=== PATIENT | male | born 1960 | race Caucasian/White ===

== ENCOUNTER 2017-05-19 23:33 | Emergency (ER) | payer OTHER, BC ==
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
[2017-05-20 00:33] VITALS: BP 134/99
== END 2017-05-20 00:15 ==
LOC: JD.ED 23:33
DX: S16.1XXA Strain of muscle, fascia and tendon at neck level, initial encounter (principal); E10.9 Type 1 diabetes mellitus without complications; Z91.018 Allergy to other foods; Z79.899 Other long term (current) drug therapy; V89.2XXA Person injured in unspecified motor-vehicle accident, traffic, initial encounter
CPT/HCPCS: 99284

== ENCOUNTER 2019-05-11 07:36 | Emergency (ER) | payer BC, OTHER ==
[2019-05-11 07:50] VITALS: BP 122/81; PULSE 84
[2019-05-11] MEDS ORDERED: Naproxen 500 MG Tab PO ONE (07:59)
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
--- NOTE | 2019-05-11 08:41 | CR ---
Right ankle: Four views of the right ankle were obtained. Comparison: No prior ankle study. Slightly displaced distal fibular fracture is seen. Soft tissue swelling is noted. Small plantar spur is noted. No additional fracture or other bony abnormality is seen. Impression: 1. Slightly displaced distal fibular fracture. 2. Other findings as noted above. Diagnostic code #3 This report was dictated in [place] Standard Time
== END 2019-05-11 09:04 | disposition home or self-care (01) ==
LOC: JD.ED 07:36
DX: S82.831A Other fracture of upper and lower end of right fibula, initial encounter for closed fracture (principal); E10.9 Type 1 diabetes mellitus without complications; Z91.018 Allergy to other foods; Z79.4 Long term (current) use of insulin; W00.0XXA Fall on same level due to ice and snow, initial encounter; Y93.01 Activity, walking, marching and hiking; Y92.89 Other specified places as the place of occurrence of the external cause
CPT/HCPCS: 73610; 99283; A9270

== ENCOUNTER 2019-12-15 17:06 | Emergency (ER) | payer BC ==
[2019-12-15] MEDS ORDERED: Sodium Chloride 0.9% 10 ML Syringe FLUSH PRN (17:23)
[2019-12-15] MEDS ORDERED: Diltiazem 50 MG/10 ML SDV IVPUSH ONE (17:24)
[2019-12-15] MEDS ORDERED: Sodium Chloride 0.9% 1,000 ML IV SCH (17:30)
[2019-12-15] MEDS ORDERED: Diltiazem 100 MG in Sodium Chloride 0.9% 100 ML IV SCH (17:30)
[2019-12-15 17:46] VITALS: BP 116/80; PULSE 88
--- NOTE | 2019-12-15 18:36 | EDM.PDOC ---
ED HPI GENERAL MEDICAL PROBLEM - General Chief Complaint: Cardiovascular Problem Stated Complaint: RAPID HEART RATE SENT BY DR GUADALUPE Time Seen by Provider: 12/15/19 17:19 Source of Information: Reports: Patient History Limitations: Reports: No Limitations - History of Present Illness INITIAL COMMENTS - FREE TEXT/NARRATIVE: The patient presents from Dr Guadalupe's office for a rapid heart rate. He had this happen before and the health information coder thought about doing an ablation. He noticed this started just before going to see Dr Guadalupe. He was sent over for management. He has no chest pain or shortness of breath but he can feel that his heart is racing. He has no fever, chills, cough, congestion, runny nose, abdominal pain, nausea or vomiting. He did say he drank a large diet Dr Selam on the way from [place] today and it had caffeine. Onset: Gradual Duration: Hour(s): Severity: Moderate Improves with: Reports: None Worsens with: Reports: None Associated Symptoms: Reports: No Other Symptoms - Related Data Allergies Allergy/AdvReac Type Severity Reaction Status Date / Time wheat Allergy Cannot Verified 12/15/19 17:19 Remember acetaminophen [From Tylenol] AdvReac Severe Other Verified 12/15/19 17:19 Home Meds: Home Meds Ascorbic Acid [Vitamin C] 1,000 mg PO DAILY 04/19/15 [History] Calcium Carbonate/Magnesium Ox [Oyster Shell Calcium-Magnes] 1 tab PO DAILY 04/19/15 [History] Cholecalciferol (Vitamin D3) [Vitamin D3] 2,000 unit PO DAILY 04/19/15 [History] Cortisol Wallpaper Embosser Helper 1 tab PO BEDTIME 04/19/15 [History] Diltiazem IR [Cardizem] 30 mg PO Q12HR 04/19/15 [History] Fish Oil/[place]-3 Fatty Acids [Fish Oil] 4 tab PO DAILY 04/19/15 [History] Insulin Glulisine [Apidra] 1 unit SQ ASDIRECTED 04/19/15 [History] Lactobacillus Acidophilus [Acidophilus] 1 each PO BID 04/19/15 [History] Multivitamin [Daily Multiple Vitamin] 1 tab PO DAILY 04/19/15 [History] Ubidecarenone [COQ-10] 30 mg PO DAILY 04/19/15 [History] Past Medical History HEENT History: Reports: Other (See Below) Other HEENT History: wears glasses, has hearing aids Cardiovascular History: Reports: Other (See Below) Other Cardiovascular History: svt and R Bundle Branch Block Respiratory History: Reports: Other (See Below) Other Respiratory History: wears cpap Gastrointestinal History: Reports: None Genitourinary History: Reports: UTI, Recurrent Musculoskeletal History: Reports: Other (See Below) Other Musculoskeletal History: R thumb trigger finger, bunion Neurological History: Reports: None Psychiatric History: Reports: None Endocrine/Metabolic History: Reports: Diabetes, Type I, Obesity/BMI 30+ Hematologic History: Reports: None Immunologic History: Reports: None Oncologic (Cancer) History: Reports: None Dermatologic History: Reports: Other (See Below) Other Dermatologic History: erysipelas - Infectious Disease History Infectious Disease History: Reports: None - Past Surgical History Male Surgical History: Reports: Vasectomy Social & Family History - Family History Family Medical History: Noncontributory - Tobacco Use Smoking Status *Q: Never Smoker - Caffeine Use Caffeine Use: Reports: Soda - Recreational Drug Use Recreational Drug Use: No ED ROS GENERAL - Review of Systems Review Of Systems: See Below Constitutional: Reports: No Symptoms HEENT: Reports: No Symptoms Respiratory: Reports: No Symptoms Cardiovascular: Reports: Palpitations. Denies: Chest Pain Endocrine: Reports: No Symptoms GI/Abdominal: Reports: No Symptoms : Reports: No Symptoms Musculoskeletal: Reports: No Symptoms Skin: Reports: No Symptoms ED EXAM, GENERAL - Physical Exam Exam: See Below Exam Limited By: No Limitations General Appearance: Alert, No Apparent Distress Ears: Normal External Exam Nose: Normal Inspection Head: Atraumatic, Normocephalic Neck: Normal Inspection Respiratory/Chest: No Respiratory Distress, Lungs Clear, Normal Breath Sounds Cardiovascular: Regular Rate, Rhythm, No Edema, No Murmur GI/Abdominal: Soft, Non-Tender, No Organomegaly, No Mass Back Exam: Normal Inspection Extremities: Normal Inspection Neurological: Alert, Oriented, No Motor/Sensory Deficits EKG INTERPRETATION EKG Date: 12/15/19 Time: 17:20 Rhythm: Other (Junctional tachycardia) Rate (Beats/Min): 154 [place]: Normal P-Wave: Absent QRS: RBBB ST-T: Normal QT: Normal Course - Vital Signs Last Recorded V/S: Last Vital Signs Temp 97.8 F 12/15/19 17:13 Pulse 88 12/15/19 17:45 Resp 16 12/15/19 17:45 BP 116/80 12/15/19 17:45 Pulse Ox 97 12/15/19 17:45 - Orders/Labs/Meds Orders: Active Orders 24 hr Category Date Time Status Cardiac Monitoring [RC] . DIRECTED Care 12/15/19 17:23 Active EKG 12 Lead [EKG Documentation Completion] [RC] STAT Care 12/15/19 17:17 Active Peripheral IV Care [RC] . DIRECTED Care 12/15/19 17:23 Active Diltiazem [Cardizem] 100 mg Med 12/15/19 17:30 Active Sodium Chloride 0.9% [Normal Saline] 100 ml IV TITRATE Sodium Chloride 0.9% [Normal Saline] 1,000 ml Med 12/15/19 17:30 Active IV .BOLUS Sodium Chloride 0.9% [Saline Flush] Med 12/15/19 17:23 Active 10 ml FLUSH ASDIRECTED PRN Peripheral IV Insertion Adult [OM.PC] Stat Oth 12/15/19 17:23 Ordered Medication Orders Sodium Chloride (Normal Saline) 1,000 mls @ 1,000 mls/hr IV .BOLUS KRANTHI Last Admin: 12/15/19 17:35 Dose: 1,000 mls/hr Documented by: CALIN Diltiazem HCl 100 mg/ Sodium (Chloride) 100 mls @ 10 mls/hr IV TITRATE KRANTHI; Protocol Last Admin: 12/15/19 17:39 Dose: 10 mg/hr, 10 mls/hr Documented by: CALIN Sodium Chloride (Saline Flush) 10 ml FLUSH ASDIRECTED PRN PRN Reason: Keep Vein Open Last Admin: 12/15/19 17:36 Dose: 10 ml Documented by: CALIN Labs: Laboratory Tests 12/15/19 12/15/19 Range/Units 17:15 17:15 WBC 10.46 H (4.23-9.07) K/mm3 RBC 5.91 (4.63-6.08) M/mm3 Hgb 17.2 (13.7-17.5) gm/dl Hct 51.2 H (40.1-51.0) % MCV 86.6 (79.0-92.2) fl MCH 29.1 (25.7-32.2) pg MCHC 33.6 (32.2-35.5) g/dl RDW Std Deviation 45.2 H (35.1-43.9) fL Plt Count 367 H (163-337) K/mm3 MPV 9.7 (9.4-12.3) fl Neut % (Auto) 62.2 (34.0-67.9) % Lymph % (Auto) 25.8 (21.8-53.1) % [place] % (Auto) 8.1 (5.3-12.2) % Eos % (Auto) 3.3 (0.8-7.0) Baso % (Auto) 0.5 (0.1-1.2) % Neut # (Auto) 6.50 H (1.78-5.38) K/mm3 Lymph # (Auto) 2.70 (1.32-3.57) K/mm3 [place] # (Auto) 0.85 H (0.30-0.82) K/mm3 Eos # (Auto) 0.35 (0.04-0.54) K/mm3 Baso # (Auto) 0.05 (0.01-0.08) K/mm3 Manual Slide Review Normal smear Sodium 139 (136-145) mEq/L Potassium 4.3 (3.5-5.1) mEq/L Chloride 101 (98-107) mEq/L Carbon Dioxide 31 (21-32) mEq/L Anion Gap 11.3 (5-15) BUN 17 (7-18) mg/dL Creatinine 1.2 (0.7-1.3) mg/dL Est Cr Clr Drug Dosing 81.38 mL/min Estimated GFR (MDRD) > 60 (>60) mL/min BUN/Creatinine Ratio 14.2 (14-18) Glucose 317 H (74-106) mg/dL Calcium 9.1 (8.5-10.1) mg/dL Magnesium 1.9 (1.8-2.4) mg/dl Total Bilirubin 0.3 (0.2-1.0) mg/dL AST 18 (15-37) U/L ALT 31 (16-63) U/L Alkaline Phosphatase 98 (46-116) U/L Troponin I < 0.017 (0.00-0.056) ng/mL Total Protein 7.9 (6.4-8.2) g/dl Albumin 3.8 (3.4-5.0) g/dl Globulin 4.1 gm/dL Albumin/Globulin Ratio 0.9 L (1-2) Meds: Medications Generic Name Dose Route Start Last Admin Trade Name Freq PRN Reason Stop Dose Admin Sodium Chloride 1,000 mls @ 1,000 mls/hr 12/15/19 17:30 12/15/19 17:35 Normal Saline IV 1,000 mls/hr .BOLUS KRANTHI Administration Diltiazem HCl 100 mg/ Sodium 100 mls @ 10 mls/hr 12/15/19 17:30 12/15/19 17:39 Chloride IV 10 mg/hr TITRATE KRANTHI 10 mls/hr Administration Protocol 10 MG/HR Sodium Chloride 10 ml 12/15/19 17:23 12/15/19 17:36 Saline Flush FLUSH 10 ml ASDIRECTED PRN Administration Keep Vein Open Discontinued Medications Generic Name Dose Route Start Last Admin Trade Name Freq PRN Reason Stop Dose Admin Diltiazem HCl 10 mg 12/15/19 17:24 12/15/19 17:36 Cardizem IVPUSH 12/15/19 17:25 10 mg ONETIME ONE Administration - Re-Assessments/Exams Free Text/Narrative Re-Assessment/Exam: 12/15/19 18:34 I ordered an IV NS 1L bolus, EKG, labs, cardizem bolus and drip. His EKG shows a junctional tachycardia. His WBC was slightly elevated at 10.46. His glucose is 317. He is insulin dependent diabetic. His troponin is negative. He slowed down and is in a NSR now. He feels good and would like to go. Departure - Departure Time of Disposition: 18:35 Disposition: Home, Self-Care 01 Condition: Good Clinical Impression: Junctional tachycardia Referrals: Woody Guadalupe MD [Primary Care Provider] - 1 Week Additional Instructions: Take your medication as prescribed. Try to avoid any caffeine. Please return if you are worse. Sepsis Event Note (ED) - Evaluation Sepsis Screening Result: No Definite Risk - Focused Exam Vital Signs: Vital Signs Temp Pulse Resp BP Pulse Ox 12/15/19 17:45 88 16 116/80 97 12/15/19 17:13 97.8 F 157 H 18 135/96 H 97 - My Orders Last 24 Hours: My Active Orders 12/15/19 17:17 EKG 12 Lead [EKG Documentation Completion] [RC] STAT 12/15/19 17:23 Cardiac Monitoring [RC] . DIRECTED Peripheral IV Care [RC] . DIRECTED Sodium Chloride 0.9% [Saline Flush] 10 ml FLUSH ASDIRECTED PRN Peripheral IV Insertion Adult [OM.PC] Stat 12/15/19 17:30 Diltiazem [Cardizem] 100 mg Sodium Chloride 0.9% [Normal Saline] 100 ml IV TITRATE Sodium Chloride 0.9% [Normal Saline] 1,000 ml IV .BOLUS - Assessment/Plan Last 24 Hours: My Active Orders 12/15/19 17:17 EKG 12 Lead [EKG Documentation Completion] [RC] STAT 12/15/19 17:23 Cardiac Monitoring [RC] . DIRECTED Peripheral IV Care [RC] . DIRECTED Sodium Chloride 0.9% [Saline Flush] 10 ml FLUSH ASDIRECTED PRN Peripheral IV Insertion Adult [OM.PC] Stat 12/15/19 17:30 Diltiazem [Cardizem] 100 mg Sodium Chloride 0.9% [Normal Saline] 100 ml IV TITRATE Sodium Chloride 0.9% [Normal Saline] 1,000 ml IV .BOLUS
== END 2019-12-15 18:52 | disposition home or self-care (01) ==
LOC: JD.ED 17:06
DX: I47.1 Supraventricular tachycardia (principal); E10.9 Type 1 diabetes mellitus without complications; E66.9 Obesity, unspecified; Z91.018 Allergy to other foods; Z68.31 Body mass index [BMI] 31.0-31.9, adult; Z88.6 Allergy status to analgesic agent; Z79.899 Other long term (current) drug therapy
CPT/HCPCS: 36415; 80053; 83735; 84484; 85025; 93005; 96365; 99285; J3490; J7030; J7050; 93010; 99284

== ENCOUNTER 2020-02-20 07:58 | Day surgery (SDC) | payer BC ==
[~2020-02-20 07:58] MED LIST: Lactated Ringers 1,000 ML IV SCH; Lidocaine 1%/Sod Bicarbonate in NS 8.4% 1 ML Syringe IDERM PRN; Sodium Chloride 0.9% 10 ML Syringe FLUSH PRN
--- NOTE | 2020-02-20 08:09 | PCM.PREANE ---
Preanesthetic Assessment - Anesthesia/Transfusion/Family Hx Anesthesia History: Prior Anesthesia Without Reaction Family History of Anesthesia Reaction: No Transfusion History: No Prior Transfusion(s) - Review of Systems General: No Symptoms Pulmonary: No Symptoms Cardiovascular: No Symptoms Gastrointestinal: No Symptoms Neurological: No Symptoms Other: Reports: None - Physical Assessment NPO Status Date: 02/19/20 NPO Status Time: 23:50 ASA Class: 2 Mental Status: Alert & Oriented x3 Airway Class: Mallampati = 2 Dentition: Reports: Normal Dentition Thyro-Mental Finger Breadths: 3 Mouth Opening Finger Breadths: 3 ROM/Head Extension: Full Lungs: Clear to Auscultation, Normal Respiratory Effort Cardiovascular: Regular Rate, Regular Rhythm - Lab Values: Laboratory Last Values SARS-CoV-2 (PCR) Detected (NOT DETECT) H 01/05/20 10:00 - Allergies Allergies/Adverse Reactions: Allergies Allergy/AdvReac Type Severity Reaction Status Date / Time acetaminophen [From Tylenol] AdvReac Severe Other Verified 02/16/20 19:10 - Acknowledgements Anesthesia Type Planned: MAC Pt an Appropriate Candidate for the Planned Anesthesia: Yes Alternatives and Risks of Anesthesia Discussed w Pt/Guardian: Yes Pt/Guardian Understands and Agrees with Anesthesia Plan: Yes PreAnesthesia Questionnaire HEENT History: Reports: Other (See Below) Other HEENT History: wears glasses, has hearing aids Cardiovascular History: Reports: Other (See Below) Other Cardiovascular History: svt and R Bundle Branch Block Respiratory History: Reports: Sleep Apnea, Other (See Below) Other Respiratory History: wears cpap Gastrointestinal History: Reports: GERD Genitourinary History: Reports: None, UTI, Recurrent 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 History: Reports: None Musculoskeletal History: Reports: Other (See Below) Other Musculoskeletal History: R thumb trigger finger, bunion Neurological History: Reports: None Psychiatric History: Reports: None Endocrine/Metabolic History: Reports: Diabetes, Type I, Obesity/BMI 30+ Hematologic History: Reports: None Immunologic History: Reports: None Oncologic (Cancer) History: Reports: None Dermatologic History: Reports: Other (See Below) Other Dermatologic History: erysipelas - Infectious Disease History Infectious Disease History: Reports: None - Past Surgical History Head Surgeries/Procedures: Reports: None HEENT Surgical History: Reports: None Cardiovascular Surgical History: Reports: None Respiratory Surgical History: Reports: None GI Surgical History: Reports: Colonoscopy Male Surgical History: Reports: Vasectomy Endocrine Surgical History: Reports: None Neurological Surgical History: Reports: None Musculoskeletal Surgical History: Reports: Other (See Below) Other Musculoskeletal Surgeries/Procedures:: right trigger finger release Oncologic Surgical History: Reports: None - SUBSTANCE USE Tobacco Use Status *Q: Never Tobacco User Recreational Drug Use History: No - HOME MEDS Home Medications: Home Meds Ascorbate Calcium [Vitamin C] 500 mg PO DAILY 02/16/20 [History] Calcium Carb/Vitamin D3/Vit K1 [Calcium + D Soft Chewable Tab] 1 tab PO DAILY 02/16/20 [History] Cholecalciferol (Vitamin D3) [Vitamin D3] 1,000 unit PO DAILY 02/16/20 [History] Fish Oil/[place]-3 Fatty Acids [Fish Oil 1,000 MG] 5 gm PO DAILY 02/16/20 [History] Insulin Aspart (Niacinamide) [Fiasp 100 Unit/ml Vial] 1 dose SQ ASDIRECTED 02/16/20 [History] Magnesium Oxide 500 mg PO DAILY 02/16/20 [History] Omeprazole Magnesium [Prilosec Otc] 20 mg PO QAM 02/16/20 [History] Promethazine [Phenergan] 1 dose TOP ASDIRECTED PRN 02/16/20 [History] Vitamin B Complex 1 cap PO DAILY 02/16/20 [History] dilTIAZem HCL [Cardizem] 120 mg PO DAILY 02/16/20 [History] lisinopriL [Lisinopril] 2.5 mg PO DAILY 02/16/20 [History] - CURRENT (IN HOUSE) MEDS Current Meds: Current Medications Lactated Ringer's (Ringers, Lactated) 1,000 mls @ 125 mls/hr IV ASDIRECTED KRANTHI Stop: 02/20/20 23:00 Lidocaine/Sodium Bicarbonate (Buffered Lidocaine 1% In Ns 8.4%) 0.25 ml IDERM ONETIME PRN PRN Reason: Prior to IV Start Stop: 02/20/20 18:00 Sodium Chloride (Saline Flush) 10 ml FLUSH ASDIRECTED PRN PRN Reason: Keep Vein Open Stop: 02/20/20 18:00 Discontinued Medications Lactated Ringer's (Ringers, Lactated) 1,000 mls @ 125 mls/hr IV ASDIRECTED KRANTHI Stop: 01/09/20 23:00 Lidocaine/Sodium Bicarbonate (Buffered Lidocaine 1% In Ns 8.4%) 0.25 ml IDERM ONETIME PRN PRN Reason: Prior to IV Start Stop: 01/09/20 23:00 Sodium Chloride (Saline Flush) 10 ml FLUSH ASDIRECTED PRN PRN Reason: Keep Vein Open Stop: 01/10/20 23:00
[2020-02-20] MEDS ORDERED: Propofol 200 MG/20 ML SDV ONE (08:57)
[2020-02-20] MEDS ORDERED: Lidocaine 1% 4 ML ONE (09:02)
[2020-02-20] MEDS ORDERED: fentaNYL 100 MCG/2 ML SDV ONE (09:02)
--- NOTE | 2020-02-20 09:56 | PCM48HPAN ---
Post Anesthesia Note - EVALUATION WITHIN 48HRS OF ANESTHETIC Vital Signs in Normal Range: Yes Patient Participated in Evaluation: Yes Respiratory Function Stable: Yes Airway Patent: Yes Cardiovascular Function Stable: Yes Hydration Status Stable: Yes Pain Control Satisfactory: Yes Nausea and Vomiting Control Satisfactory: Yes Mental Status Recovered: Yes Vital Signs: Last Vital Signs Temp 36.4 C 02/20/20 08:00 Pulse 67 02/20/20 08:00 Resp 20 02/20/20 08:00 BP 129/83 02/20/20 08:00 Pulse Ox 99 02/20/20 08:00
[2020-02-20 10:33] VITALS: BP 103/68; PULSE 64
--- NOTE | 2020-02-20 13:14 | PROC ---
DATE OF OPERATION: 02/20/2020 SURGEON: García Abdalla MD PREOPERATIVE DIAGNOSIS: Dysphagia. POSTOPERATIVE DIAGNOSIS: 1. Bile reflux 2. Esophagitis 3. Gastritis 4. Large sliding hiatal hernia PROCEDURE: Esophagogastroduodenoscopy. ESTIMATED BLOOD LOSS: Minimal. ANESTHESIA: Monitored anesthesia care. COMPLICATIONS: None. INDICATIONS AND CONSENT: Mr. Castro is a 59-year-old male who presented to clinic for dysphagia symptoms. The patient reported that as of last few months he has been having trouble swallowing some types of food. Sometimes it could be solids, sometimes could be liquid, sometimes even water, feels like the food is getting stuck into the lower chest. The patient also had been complaining about reflux that has intensified. He was placed on PPI, which appeared to help. The patient underwent an upper GI that showed a large hiatal hernia and reflux, but no other significant abnormalities. Due to these findings, I recommended we proceed with an EGD and the risks, benefits, and alternatives were discussed and the patient agreed to proceed with the procedure. Informed consent was obtained. DETAILS OF PROCEDURE: The patient was met in the preop area and was doing fine, was taken to the procedure room and placed in left lateral decubitus position. A time-out was performed. Bite block was placed. The patient was appropriately padded and monitored anesthesia care was induced. Then, we began the procedure by passing the scope down into the mouth and into the esophagus with direct visualization. The upper esophagus appeared normal. There was mild tortuosity of the esophagus. In the distal esophagus right above the GE junction, there was some angulation at this area. Then, we entered the GE junction immediately discovering a large hiatal hernia with part of the stomach in the chest. We traversed this area and went down to the second portion of duodenum. Duodenum was normal, both first and second portions. We went back into the antrum. There was a significant bile stain in the antrum with associated localized inflammatory response. We biopsied areas of inflammation as well as the antrum for histologic examination and H. pylori testing. Then, we went on retroflexion. There was large hiatal hernia with part of the stomach in the chest. This appeared to be more consistent with a sliding hiatal hernia. There was small amount of green stained fluid in the fundus and cardia once again indicating bile reflux. We biopsied the fundus as well as some areas that appeared to be inflamed. We went back to the GE junction and distal esophagus. There appeared to be some grade B esophagitis in the distal esophagus. This area was biopsied for histological examination. Once again, there was acute angulation in the distal esophagus as you entered the GE junction, likely due to the hiatal hernia. I think this area may be causing the patient's symptoms. Once this was done, once again we traversed into the stomach. There was no obvious stricture that needed to be intervened on. At this point, air was suctioned out and scope was withdrawn. Therefore, in this case, we found bile reflux, gastritis, and esophagitis as well as large hiatal hernia, which is sliding hiatal hernia. The patient was awoken from monitored anesthesia care and taken to the PACU for recovery. The patient to be allowed to go home and follow up with me in 1 week for further discussion. ROSE MARY /[id number] CASH
== END 2020-02-20 10:36 | disposition home or self-care (01) ==
LOC: JD.SDS 07:58
PROVIDERS: ATTEND Surgery
DX: K29.50 Unspecified chronic gastritis without bleeding (principal); K31.89 Other diseases of stomach and duodenum; K21.00 Gastro-esophageal reflux disease with esophagitis, without bleeding; K44.9 Diaphragmatic hernia without obstruction or gangrene; I78.1 Nevus, non-neoplastic; G47.30 Sleep apnea, unspecified; E66.9 Obesity, unspecified; E10.9 Type 1 diabetes mellitus without complications; Z68.31 Body mass index [BMI] 31.0-31.9, adult; Z98.890 Other specified postprocedural states; Z79.899 Other long term (current) drug therapy; Z88.8 Allergy status to other drugs, medicaments and biological substances; Z01.812 Encounter for preprocedural laboratory examination; Z20.828 Contact with and (suspected) exposure to other viral communicable diseases
CPT/HCPCS: 43239; 87635; J2001; J2704; J3010; J7120; 00731; U0002

== ENCOUNTER 2020-06-18 07:10 | Inpatient (IN) | payer BC ==
[2020-06-18] MEDS ORDERED: Lidocaine 1% 4 ML ONE (07:28)
[2020-06-18] MEDS ORDERED: Propofol 200 MG/20 ML SDV ONE ×2 (07:28→08:23)
[2020-06-18] MEDS ORDERED: Rocuronium 50 MG/5 ML Vial ONE ×4 (07:30→12:10)
[2020-06-18] MEDS ORDERED: Midazolam 1 MG/ML 2 ML SDV ONE (07:30)
[2020-06-18] MEDS ORDERED: Ondansetron 4 MG/2 ML SDV ONE ×2 (07:31→12:41)
[2020-06-18] MEDS ORDERED: Dexamethasone 4 MG/ML 5 ML MDV ONE (07:31)
[2020-06-18] MEDS ORDERED: fentaNYL 100 MCG/2 ML SDV ONE ×3 (07:31→16:33)
[2020-06-18] MEDS ORDERED: Bupivacaine 0.5%/EPINEPHrine 1:200,000 50 ML MDV ONE ×2 (07:32→09:12)
[2020-06-18] MEDS ORDERED: ceFAZolin 1 GM Vial ONE ×2 (07:32→12:09)
--- NOTE | 2020-06-18 07:50 | PCM.PREANE ---
Preanesthetic Assessment - Procedure Proposed Procedure: lap hiatal hernia repair - Anesthesia/Transfusion/Family Hx Anesthesia History: Prior Anesthesia Without Reaction Transfusion History: No Prior Transfusion(s) Intubation History: Unknown - Review of Systems General: No Symptoms Pulmonary: Other (quoc with CPAP mask ) Cardiovascular: No Symptoms (since ablation no symptoms ) Gastrointestinal: No Symptoms Neurological: No Symptoms Other: Reports: Diabetes - Physical Assessment NPO Status Date: 06/17/20 NPO Status Time: 22:00 Height: 1.93 m ASA Class: 3 Mental Status: Alert & Oriented x3 Airway Class: Mallampati = 2 Dentition: Reports: Missing Tooth/Teeth (multiple in the back and right lower ) Thyro-Mental Finger Breadths: 3 Mouth Opening Finger Breadths: 4 ROM/Head Extension: Full Lungs: Clear to Auscultation, Normal Respiratory Effort Cardiovascular: Regular Rate, Regular Rhythm - Allergies Allergies/Adverse Reactions: Allergies Allergy/AdvReac Type Severity Reaction Status Date / Time acetaminophen [From Tylenol] AdvReac Intermediate Other Verified 06/15/20 12:02 - Blood Blood Available: No - Anesthesia Plan Pre-Op Medication Ordered: None - Acknowledgements Anesthesia Type Planned: General Anesthesia Pt an Appropriate Candidate for the Planned Anesthesia: Yes Alternatives and Risks of Anesthesia Discussed w Pt/Guardian: Yes Pt/Guardian Understands and Agrees with Anesthesia Plan: Yes PreAnesthesia Questionnaire HEENT History: Reports: Other (See Below) Other HEENT History: wears glasses, has hearing aids Cardiovascular History: Reports: Other (See Below) Other Cardiovascular History: svt and R Bundle Branch Block Respiratory History: Reports: Sleep Apnea, Other (See Below) Other Respiratory History: wears cpap Gastrointestinal History: Reports: GERD Genitourinary History: Reports: None, UTI, Recurrent DIRECTOR OF STUDENT LIFE History: Reports: None Musculoskeletal History: Reports: Other (See Below) Other Musculoskeletal History: R thumb trigger finger, bunion Neurological History: Reports: None Psychiatric History: Reports: None Endocrine/Metabolic History: Reports: Diabetes, Type I, Obesity/BMI 30+ Hematologic History: Reports: None Immunologic History: Reports: None Oncologic (Cancer) History: Reports: None Dermatologic History: Reports: Other (See Below) Other Dermatologic History: erysipelas - Infectious Disease History Infectious Disease History: Reports: Novel Coronavirus - Past Surgical History Head Surgeries/Procedures: Reports: None HEENT Surgical History: Reports: None Cardiovascular Surgical History: Reports: Cardiac Ablation Respiratory Surgical History: Reports: None GI Surgical History: Reports: Colonoscopy, EGD Male Surgical History: Reports: Vasectomy Endocrine Surgical History: Reports: None Neurological Surgical History: Reports: None Musculoskeletal Surgical History: Reports: Other (See Below) Other Musculoskeletal Surgeries/Procedures:: right trigger finger release Oncologic Surgical History: Reports: None - SUBSTANCE USE Tobacco Use Status *Q: Never Tobacco User Second Hand Smoke Exposure: No Recreational Drug Use History: No - HOME MEDS Home Medications: Home Meds Ascorbate Calcium [Vitamin C] 500 mg PO DAILY 02/16/20 [History] Calcium Carb/Vitamin D3/Vit K1 [Calcium + D Soft Chewable Tab] 1 tab PO BID 02/16/20 [History] Cholecalciferol (Vitamin D3) [Vitamin D3] 1,000 unit PO DAILY 02/16/20 [History] Fish Oil/[place]-3 Fatty Acids [Fish Oil 1,000 MG] 4 - 5 gm PO DAILY 02/16/20 [History] Insulin Aspart (Niacinamide) [Fiasp 100 Unit/ml Vial] 1 dose SQ ASDIRECTED 02/16/20 [History] Magnesium Oxide 500 mg PO DAILY 02/16/20 [History] Omeprazole Magnesium [Prilosec Otc] 20 mg PO QAM 02/16/20 [History] Promethazine [Phenergan] 1 dose TOP ASDIRECTED PRN 02/16/20 [History] Vitamin B Complex 1 cap PO DAILY 02/16/20 [History] lisinopriL [Lisinopril] 2.5 mg PO DAILY 02/16/20 [History] Rosuvastatin [Crestor] 5 mg PO DAILY 06/15/20 [History] Ubidecarenone [Coq-10] 100 mg PO DAILY 06/15/20 [History] Zinc 50 mg PO DAILY 06/15/20 [History] - CURRENT (IN HOUSE) MEDS Current Meds: Current Medications Lactated Ringer's (Ringers, Lactated) 1,000 mls @ 125 mls/hr IV ASDIRECTED KRANTHI Stop: 06/18/20 23:00 Lidocaine/Sodium Bicarbonate (Lidocaine 1%/Sod Bicarbonate In Ns 8.4% 1 Ml Syringe) 0.25 ml IDERM ONETIME PRN PRN Reason: Prior to IV Start Stop: 06/18/20 18:00 Sodium Chloride (Sodium Chloride 0.9% 10 Ml Syringe) 10 ml FLUSH ASDIRECTED PRN PRN Reason: Keep Vein Open Stop: 06/18/20 18:00 Discontinued Medications Bupivacaine HCl/Epinephrine Bitart (Bupivacaine 0.5%/Epinephrine 1:200,000 50 Ml Mdv) Confirm Administered Dose 50 ml .ROUTE .STK-MED ONE Stop: 06/18/20 07:33 Cefazolin Sodium (Cefazolin 1 Gm Vial) Confirm Administered Dose 3 gm .ROUTE .STK-MED ONE Stop: 06/18/20 07:33 Dexamethasone (Dexamethasone 4 Mg/Ml 5 Ml Mdv) Confirm Administered Dose 20 mg .ROUTE .STK-MED ONE Stop: 06/18/20 07:32 Fentanyl (Fentanyl 100 Mcg/2 Ml Sdv) Confirm Administered Dose 100 mcg .ROUTE .STK-MED ONE Stop: 06/18/20 07:32 Lidocaine HCl (Xylocaine-Mpf 1%) Confirm Administered Dose 4 mls @ as directed .ROUTE .STK-MED ONE Stop: 06/18/20 07:29 Midazolam HCl (Midazolam 1 Mg/Ml 2 Ml Sdv) Confirm Administered Dose 2 mg .ROUTE .STK-MED ONE Stop: 06/18/20 07:31 Ondansetron HCl (Ondansetron 4 Mg/2 Ml Sdv) Confirm Administered Dose 4 mg .ROUTE .STK-MED ONE Stop: 06/18/20 07:32 Propofol (Propofol 200 Mg/20 Ml Sdv) Confirm Administered Dose 200 mg .ROUTE .STK-MED ONE Stop: 06/18/20 07:29 Rocuronium [place] (Rocuronium 50 Mg/5 Ml Vial) Confirm Administered Dose 50 mg .ROUTE .STK-MED ONE Stop: 06/18/20 07:31
[2020-06-18] MEDS ORDERED: Lactated Ringers 1,000 ML ONE ×2 (08:48→14:33)
[2020-06-18] MEDS ORDERED: HYDROmorphone 0.5 MG/0.5 ML Syringe ONE ×6 (08:49→14:47)
[2020-06-18] MEDS ORDERED: Ketamine 500 mg/10 ML MDV ONE (08:54)
[2020-06-18] MEDS ORDERED: Ketorolac 30 MG/ML SDV ONE (09:03)
[2020-06-18] MEDS ORDERED: Lactated Ringers 2,000 ML ONE (12:00)
[2020-06-18] MEDS ORDERED: Ondansetron 4 MG/2 ML SDV IVPUSH PRN (12:39)
[2020-06-18] MEDS ORDERED: diphenhydrAMINE 50 MG/ML SDV IVPUSH PRN (12:39)
[2020-06-18] MEDS ORDERED: Scopolamine 1.5 MG Transdermal Patch TRDERM ONE (13:00)
[2020-06-18] MEDS ORDERED: Sodium Chloride 0.9% 100 ML ONE (13:16)
[2020-06-18] MEDS: Insulin Regular, Human 100 Units/ML 3 ML Vial IV PRN ×4 (13:22→15:09)
[2020-06-18] MEDS ORDERED: fentaNYL 100 MCG/2 ML SDV IVPUSH PRN (16:54)
--- NOTE | 2020-06-18 16:59 | PCM.POSTAN ---
POST ANESTHESIA ASSESSMENT - MENTAL STATUS Mental Status: Somnolent - VITAL SIGNS Vital Signs: Last Vital Signs Temp 36.6 C 06/18/20 07:15 Pulse 79 06/18/20 07:15 Resp 20 06/18/20 07:15 BP 131/76 06/18/20 07:15 Pulse Ox 98 06/18/20 07:15 - RESPIRATORY Respiratory Status: Respiratory Rate WNL, Airway Patent, O2 Saturation Stable, Supplemental Oxygen - CARDIOVASCULAR CV Status: Pulse Rate WNL, Blood Pressure Stable - GASTROINTESTINAL GI Status: No Symptoms - PAIN Pain Score: 0 - POST OP HYDRATION Hydration Status: Adequate & Stable - OBSERVATIONS Free Text/Narrative:: no anesthesia complications noted
[2020-06-18] MEDS ORDERED: Polyethylene Glycol 3350 Powder 17 GM Packet PO PRN (17:09)
--- NOTE | 2020-06-18 18:08 | OR ---
DATE OF OPERATION: 06/18/2020 SURGEON: García Abdalla MD PREOPERATIVE DIAGNOSIS: 1. Moderate to large hiatal hernia, type 3. 2. Chronic gastroesophageal reflux disease. POSTOPERATIVE DIAGNOSIS: 1. Moderate to large hiatal hernia. 2. Chronic gastroesophageal reflux disease. 3. Shortened esophagus OPERATION PERFORMED: 1. Laparoscopic paraesophageal hiatal hernia repair. 2. Partial gastric fundoplication - [place] 3. El gastroplasty. 4. Intraoperative esophagogastroscopy. ANESTHESIA: General endotracheal plus local anesthetic consisting of 1% lidocaine with epinephrine. COMPLICATIONS: None. ESTIMATED BLOOD LOSS: 50 mL. NEED FOR ASSISTANCE: Skilled assistance of Edna Montenegro CNP was needed in this case. She assisted with patient positioning, holding retractors during the procedure and incision closure. INDICATIONS AND CONSENT: Mr. Nithin Castro is a 59-year-old male, who has been suffering from chronic dysphagia and GERD. The patient has been using PPIs which are helping, but the patient does not want to continue to take PPIs. The patient was evaluated with an EGD, esophagram, motility studies, and pH manometry. EGD showed moderately large paraesophageal hiatal hernia, this was type 3, and esophagitis. X-ray and esophagram did show the same. Manometry showed esophageal dysmotility disorder and manometry showed significant reflux. Due to these findings, the patient was offered partial fundoplication with hiatal hernia repair. We discussed risks, benefits, and alternatives including bloating, injury to the esophagus, leak, injury to other adjacent structures, and informed consent was obtained. DESCRIPTION OF PROCEDURE: The patient was taken to the operating room, placed in supine position. Preop antibiotics were given. General anesthesia was induced. The patient's position was changed to lithotomy. Serrano was placed and the abdomen is was prepped and draped in the usual sterile fashion. Formal time-out was performed prior to the start of the procedure. We began by injecting local anesthetic in the left upper quadrant. Stab incision was made and a Veress needle was inserted. Abdomen was insufflated to 15 mmHg. Then, a 12 mm trocar was placed in the supraumbilical position just to the left to the umbilicus and cranially, and upon inspection, the abdomen revealed no injuries. Another 12 mm trocar was placed about 12 mm from xiphoid on the left upper quadrant. Another 5 mm trocar was placed in the right subcostal and a liver retractor was placed into the subxiphoid area to retract the liver using a retractor clamp. Then, advertising assistant port was placed in the left lateral abdomen. The patient was placed in the reverse Trendelenburg and we began by exploring the abdomen, which was normal. The hiatal area did show a paraesophageal hiatal hernia containing about a third of the stomach. This was reduced and we started by dissecting the hernia sac of the surrounding structures and scar tissue. This was done by first dissecting the parietal peritoneum around the crura with Bovie. Using blunt dissection, the hernia sac was carefully from the thoracic structures. This was done on the right side, then anteriorly and then on the left side. Then, the short gastrics were divided with LigaSure Impact. Next, the left mary was dissected further to delineate its full course. The right mary was also similarly dissected completely. Then, the Becky drain was placed around the esophagus and retraction caudally was maintained. A posterior dissection was now completed, taking care to ligate the vessels coming from the aorta to the posterior esophagus. Dissection was taken as high up to the mediastinum as possible. Care was taken to visualize and protect the vagus nerves. Once this was done, we went back into the abdomen. The hernia sac was partially resected from the GE junction and at this point, we started to assess the intraabdominal length of the esophagus. Tension was released from the becky and the esophagus was measured with ruler placed intra-abdominally. There was only 1.5 cm of intraabdominal esophagus. Because of this inadequacy, we repeated dissection further into the mediastinum trying to release further the length of the esophagus, but even with further dissection, the esophageal length was inadequate. Therefore, a decision was made to proceed with El gastroplasty. To do this, a portion of the fundus of the stomach was identified. A 56-Cuban bougie was placed into the esophagus all the way into the mid stomach and then a wedge of the fundus was taken using blue load with the Endo-JESUS stapler. Once this was done, we had additional 2 cm length of the leonor esophagus. This was adequate to perform our fundoplication. We proceeded with closure of the hiatal hernia. Three [id number] stitches using 0 Ethibond stitches and Endo Stitch devices were used to close the hiatus. Once this was done, one additional stitch was placed anteriorly to further reduce the hiatus and prevent recurrence. Once this was done, we tried to perform the partial fundoplication, but we had some difficulty passing the fundus around the leonor esophagus. Because of this, we reinspected our fundus and found that there were some posterior attachments that had not been taken. Therefore, we went back to dissection and using LigaSure Impact, we took posterior attachments to the fundus; therefore, completely releasing the fundus, and once this was done, we were able to pass the transection line of the fundus towards the right and part of the greater curve towards the left, performing a partial fundoplication. This partial fundoplication was a Toupet fundoplication about 270 degrees. This was performed under a 56-Cuban bougie using 0 Ethibond stitches and Endo Stitch device. Once this was done, any blood was suctioned out and we proceeded with intraoperative EGD. Scope was placed into the mouth and taken down to the stomach. Stomach appeared normal. On retroflexion, we visualized the newly formed fundoplication appeared to be well positioned. The fundoplication was as expected below the GE junction. The GE junction was residing at the hiatus. Once this was done, the air was suctioned out and went back into the abdomen. I inspected the abdomen. We removed the parts of the hernia sac through the EndoCatch bag and everything appeared to be in good condition. Liver retractor was removed and we proceeded with closure of the 12 mm trocar sites with 0 Vicryl stitches using David-Marianne device and incision at all 6 areas was closed with 4-0 Monocryl at skin level. This marked the end of the procedure. At the end of the procedure, all instruments, sharps, and sponges were counted and found to be correct x2. The patient was awakened, extubated, and taken to the PACU for recovery. ROSE MARY /[id number] CASH
[2020-06-18] MEDS: Lactated Ringers 1,000 ML IV SCH (19:52)
[2020-06-18] MEDS: Ondansetron 4 MG/2 ML SDV IVPUSH SCH (19:52)
[2020-06-19] MEDS: Ondansetron 4 MG/2 ML SDV IVPUSH SCH ×5 (00:01→23:07)
[2020-06-19] MEDS: HYDROmorphone 0.5 MG/0.5 ML Syringe IVPUSH PRN ×6 (00:01→19:41)
[2020-06-19] MEDS: Lactated Ringers 1,000 ML IV SCH (03:49)
--- NOTE | 2020-06-19 07:58 | PCM48HPAN ---
Post Anesthesia Note - EVALUATION WITHIN 48HRS OF ANESTHETIC Vital Signs in Normal Range: Yes Patient Participated in Evaluation: Yes Respiratory Function Stable: Yes Airway Patent: Yes Cardiovascular Function Stable: Yes Hydration Status Stable: Yes Pain Control Satisfactory: Yes Nausea and Vomiting Control Satisfactory: Yes Mental Status Recovered: Yes Vital Signs: Last Vital Signs Temp 37.2 C 06/19/20 03:47 Pulse 100 06/19/20 03:47 Resp 18 06/19/20 03:47 BP 117/67 06/19/20 03:47 Pulse Ox 96 06/19/20 03:47 - COMMENTS/OBSERVATIONS Free Text/Narrative:: Nithin is sitting up in bed conversing with his and nursing staff this morning. He states his pain has significantly improved over night and the goal is to get him up out of bed today. He admits he has not used his incentive spirometer. Education provided enforcing the importance of pulmonary exercise. All questions answered at this time. No anesthetic complications noted.
[2020-06-19] MEDS: Pantoprazole 40 MG Vial IVPUSH SCH (08:28)
[2020-06-19] MEDS: oxyCODONE 5 MG Tab PO PRN ×3 (08:36→14:31)
--- NOTE | 2020-06-19 09:48 | PCM.PN ---
- General Info Date of Service: 06/19/20 Subjective Update: Still has a sharp abdominal pain on the left lateral incision. This is what prevents him from doing activities. He is tolerating clears without nausea or vomiting Functional Status: Reports: Tolerating Diet, Other (No nausea or vomiting) - Review of Systems General: Reports: No Symptoms HEENT: Reports: No Symptoms Pulmonary: Reports: No Symptoms Cardiovascular: Reports: No Symptoms Gastrointestinal: Reports: Abdominal Pain (post op) - Patient Data Vitals - Most Recent: Last Vital Signs Temp 99.0 F 06/19/20 07:56 Pulse 91 06/19/20 07:56 Resp 16 06/19/20 07:56 BP 125/63 06/19/20 07:56 Pulse Ox 95 06/19/20 07:56 Weight - Most Recent: 121.699 kg I&O - Last 24 Hours: Intake & Output 06/18/20 06/19/20 06/19/20 22:59 06:59 14:59 Intake Total 400 1550 Output Total 50 1350 Balance 350 200 Lab Results Last 24 Hours: Laboratory Results - last 24 hr 06/18/20 06/18/20 06/18/20 Range/Units 10:00 11:29 12:36 WBC (4.23-9.07) K/mm3 RBC (4.63-6.08) M/mm3 Hgb (13.7-17.5) gm/dl Hct (40.1-51.0) % MCV (79.0-92.2) fl MCH (25.7-32.2) pg MCHC (32.2-35.5) g/dl RDW Std Deviation (35.1-43.9) fL Plt Count (163-337) K/mm3 MPV (9.4-12.3) fl Neut % (Auto) (34.0-67.9) % Lymph % (Auto) (21.8-53.1) % [place] % (Auto) (5.3-12.2) % Eos % (Auto) (0.8-7.0) Baso % (Auto) (0.1-1.2) % Neut # (Auto) (1.78-5.38) K/mm3 Lymph # (Auto) (1.32-3.57) K/mm3 [place] # (Auto) (0.30-0.82) K/mm3 Eos # (Auto) (0.04-0.54) K/mm3 Baso # (Auto) (0.01-0.08) K/mm3 Manual Slide Review Sodium (136-145) mEq/L Potassium (3.5-5.1) mEq/L Chloride (98-107) mEq/L Carbon Dioxide (21-32) mEq/L Anion Gap (5-15) BUN (7-18) mg/dL Creatinine (0.7-1.3) mg/dL Est Cr Clr Drug Dosing mL/min Estimated GFR (MDRD) (>60) mL/min BUN/Creatinine Ratio (14-18) Glucose (74-106) mg/dL POC Glucose 214 H 242 H 293 H (70-105) mg/dL Calcium (8.5-10.1) mg/dL Total Bilirubin (0.2-1.0) mg/dL AST (15-37) U/L ALT (16-63) U/L Alkaline Phosphatase (46-116) U/L Total Protein (6.4-8.2) g/dl Albumin (3.4-5.0) g/dl Globulin gm/dL Albumin/Globulin Ratio (1-2) 06/18/20 06/18/20 06/18/20 Range/Units 13:23 13:59 14:29 WBC (4.23-9.07) K/mm3 RBC (4.63-6.08) M/mm3 Hgb (13.7-17.5) gm/dl Hct (40.1-51.0) % MCV (79.0-92.2) fl MCH (25.7-32.2) pg MCHC (32.2-35.5) g/dl RDW Std Deviation (35.1-43.9) fL Plt Count (163-337) K/mm3 MPV (9.4-12.3) fl Neut % (Auto) (34.0-67.9) % Lymph % (Auto) (21.8-53.1) % [place] % (Auto) (5.3-12.2) % Eos % (Auto) (0.8-7.0) Baso % (Auto) (0.1-1.2) % Neut # (Auto) (1.78-5.38) K/mm3 Lymph # (Auto) (1.32-3.57) K/mm3 [place] # (Auto) (0.30-0.82) K/mm3 Eos # (Auto) (0.04-0.54) K/mm3 Baso # (Auto) (0.01-0.08) K/mm3 Manual Slide Review Sodium (136-145) mEq/L Potassium (3.5-5.1) mEq/L Chloride (98-107) mEq/L Carbon Dioxide (21-32) mEq/L Anion Gap (5-15) BUN (7-18) mg/dL Creatinine (0.7-1.3) mg/dL Est Cr Clr Drug Dosing mL/min Estimated GFR (MDRD) (>60) mL/min BUN/Creatinine Ratio (14-18) Glucose (74-106) mg/dL POC Glucose 327 H 341 H 260 H (70-105) mg/dL Calcium (8.5-10.1) mg/dL Total Bilirubin (0.2-1.0) mg/dL AST (15-37) U/L ALT (16-63) U/L Alkaline Phosphatase (46-116) U/L Total Protein (6.4-8.2) g/dl Albumin (3.4-5.0) g/dl Globulin gm/dL Albumin/Globulin Ratio (1-2) 06/18/20 06/18/20 06/18/20 Range/Units 15:09 15:35 16:42 WBC (4.23-9.07) K/mm3 RBC (4.63-6.08) M/mm3 Hgb (13.7-17.5) gm/dl Hct (40.1-51.0) % MCV (79.0-92.2) fl MCH (25.7-32.2) pg MCHC (32.2-35.5) g/dl RDW Std Deviation (35.1-43.9) fL Plt Count (163-337) K/mm3 MPV (9.4-12.3) fl Neut % (Auto) (34.0-67.9) % Lymph % (Auto) (21.8-53.1) % [place] % (Auto) (5.3-12.2) % Eos % (Auto) (0.8-7.0) Baso % (Auto) (0.1-1.2) % Neut # (Auto) (1.78-5.38) K/mm3 Lymph # (Auto) (1.32-3.57) K/mm3 [place] # (Auto) (0.30-0.82) K/mm3 Eos # (Auto) (0.04-0.54) K/mm3 Baso # (Auto) (0.01-0.08) K/mm3 Manual Slide Review Sodium (136-145) mEq/L Potassium (3.5-5.1) mEq/L Chloride (98-107) mEq/L Carbon Dioxide (21-32) mEq/L Anion Gap (5-15) BUN (7-18) mg/dL Creatinine (0.7-1.3) mg/dL Est Cr Clr Drug Dosing mL/min Estimated GFR (MDRD) (>60) mL/min BUN/Creatinine Ratio (14-18) Glucose (74-106) mg/dL POC Glucose 223 H 195 H 212 H (70-105) mg/dL Calcium (8.5-10.1) mg/dL Total Bilirubin (0.2-1.0) mg/dL AST (15-37) U/L ALT (16-63) U/L Alkaline Phosphatase (46-116) U/L Total Protein (6.4-8.2) g/dl Albumin (3.4-5.0) g/dl Globulin gm/dL Albumin/Globulin Ratio (1-2) 06/19/20 06/19/20 Range/Units 04:52 04:52 WBC 13.53 H (4.23-9.07) K/mm3 RBC 5.09 (4.63-6.08) M/mm3 Hgb 14.4 D (13.7-17.5) gm/dl Hct 44.6 (40.1-51.0) % MCV 87.6 (79.0-92.2) fl MCH 28.3 (25.7-32.2) pg MCHC 32.3 (32.2-35.5) g/dl RDW Std Deviation 46.1 H (35.1-43.9) fL Plt Count 246 D (163-337) K/mm3 MPV 10.1 (9.4-12.3) fl Neut % (Auto) 80.5 H (34.0-67.9) % Lymph % (Auto) 8.5 L (21.8-53.1) % [place] % (Auto) 10.7 (5.3-12.2) % Eos % (Auto) 0 L (0.8-7.0) Baso % (Auto) 0.1 (0.1-1.2) % Neut # (Auto) 10.89 H (1.78-5.38) K/mm3 Lymph # (Auto) 1.15 L (1.32-3.57) K/mm3 [place] # (Auto) 1.45 H (0.30-0.82) K/mm3 Eos # (Auto) 0.00 L (0.04-0.54) K/mm3 Baso # (Auto) 0.01 (0.01-0.08) K/mm3 Manual Slide Review Abnormal smear Sodium 139 (136-145) mEq/L Potassium 4.5 (3.5-5.1) mEq/L Chloride 105 (98-107) mEq/L Carbon Dioxide 23 (21-32) mEq/L Anion Gap 15.5 H (5-15) BUN 22 H (7-18) mg/dL Creatinine 1.3 (0.7-1.3) mg/dL Est Cr Clr Drug Dosing 75.12 mL/min Estimated GFR (MDRD) 57 (>60) mL/min BUN/Creatinine Ratio 16.9 (14-18) Glucose 286 H (74-106) mg/dL POC Glucose (70-105) mg/dL Calcium 8.6 (8.5-10.1) mg/dL Total Bilirubin 0.7 (0.2-1.0) mg/dL AST 983 H (15-37) U/L ALT 1150 H (16-63) U/L Alkaline Phosphatase 71 (46-116) U/L Total Protein 6.1 L (6.4-8.2) g/dl Albumin 2.7 L (3.4-5.0) g/dl Globulin 3.4 gm/dL Albumin/Globulin Ratio 0.8 L (1-2) Med Orders - Current: Current Medications Hydromorphone HCl (Hydromorphone 0.5 Mg/0.5 Ml Syringe) 1 mg IVPUSH Q2H PRN PRN Reason: Pain (severe 7-10) Last Admin: 06/19/20 07:40 Dose: 1 mg Documented by: Ondansetron HCl (Ondansetron 4 Mg/2 Ml Sdv) 4 mg IVPUSH Q6H [facility] Last Admin: 06/19/20 06:16 Dose: 4 mg Documented by: Oxycodone HCl (Oxycodone 5 Mg Tab) 5 mg PO Q4H PRN PRN Reason: Pain (moderate 4-6) Last Admin: 06/19/20 08:36 Dose: 5 mg Documented by: Pantoprazole Sodium (Pantoprazole 40 Mg Vial) 40 mg IVPUSH DAILY [facility] Last Admin: 06/19/20 08:28 Dose: 40 mg Documented by: Polyethylene Glycol (Polyethylene Glycol 3350 Powder 17 Gm Packet) 17 gm PO DAILY PRN PRN Reason: Constipation Discontinued Medications Bupivacaine HCl/Epinephrine Bitart (Bupivacaine 0.5%/Epinephrine 1:200,000 50 Ml Mdv) Confirm Administered Dose 50 ml .ROUTE .STK-MED ONE Stop: 06/18/20 07:33 Bupivacaine HCl/Epinephrine Bitart (Bupivacaine 0.5%/Epinephrine 1:200,000 50 Ml Mdv) Confirm Administered Dose 50 ml .ROUTE .STK-MED ONE Stop: 06/18/20 09:13 Last Admin: 06/18/20 08:55 Dose: 60 ml Documented by: Cefazolin Sodium (Cefazolin 1 Gm Vial) Confirm Administered Dose 3 gm .ROUTE .STK-MED ONE Stop: 06/18/20 07:33 Cefazolin Sodium (Cefazolin 1 Gm Vial) Confirm Administered Dose 2 gm .ROUTE .STK-MED ONE Stop: 06/18/20 12:10 Dexamethasone (Dexamethasone 4 Mg/Ml 5 Ml Mdv) Confirm Administered Dose 20 mg .ROUTE .STK-MED ONE Stop: 06/18/20 07:32 Diphenhydramine HCl (Diphenhydramine 50 Mg/Ml Sdv) 25 mg IVPUSH Q6H PRN PRN Reason: pruritis Fentanyl (Fentanyl 100 Mcg/2 Ml Sdv) Confirm Administered Dose 100 mcg .ROUTE .STK-MED ONE Stop: 06/18/20 07:32 Fentanyl (Fentanyl 100 Mcg/2 Ml Sdv) Confirm Administered Dose 100 mcg .ROUTE .STK-MED ONE Stop: 06/18/20 16:04 Fentanyl (Fentanyl 100 Mcg/2 Ml Sdv) Confirm Administered Dose 100 mcg .ROUTE .STK-MED ONE Stop: 06/18/20 16:34 Fentanyl (Fentanyl 100 Mcg/2 Ml Sdv) 50 mcg IVPUSH Q5M PRN PRN Reason: Pain Glycopyrrolate (Glycopyrrolate 0.2 Mg/Ml 2 Ml Syringe) Confirm Administered Dose 0.4 mg .ROUTE .STK-MED ONE Stop: 06/18/20 09:04 Hydromorphone HCl (Hydromorphone 0.5 Mg/0.5 Ml Syringe) Confirm Administered Dose 0.5 mg .ROUTE .STK-MED ONE Stop: 06/18/20 08:50 Hydromorphone HCl (Hydromorphone 0.5 Mg/0.5 Ml Syringe) Confirm Administered Dose 0.5 mg .ROUTE .STK-MED ONE Stop: 06/18/20 09:33 Hydromorphone HCl (Hydromorphone 0.5 Mg/0.5 Ml Syringe) Confirm Administered Dose 0.5 mg .ROUTE .STK-MED ONE Stop: 06/18/20 10:24 Hydromorphone HCl (Hydromorphone 0.5 Mg/0.5 Ml Syringe) Confirm Administered Dose 0.5 mg .ROUTE .STK-MED ONE Stop: 06/18/20 12:01 Hydromorphone HCl (Hydromorphone 0.5 Mg/0.5 Ml Syringe) Confirm Administered Dose 0.5 mg .ROUTE .STK-MED ONE Stop: 06/18/20 13:39 Hydromorphone HCl (Hydromorphone 0.5 Mg/0.5 Ml Syringe) Confirm Administered Dose 0.5 mg .ROUTE .STK-MED ONE Stop: 06/18/20 14:48 Lactated Ringer's (Ringers, Lactated) 1,000 mls @ 125 mls/hr IV ASDIRECTED KRANTHI Stop: 06/18/20 23:00 Last Admin: 06/18/20 07:30 Dose: 125 mls/hr Documented by: Lidocaine HCl (Xylocaine-Mpf 1%) Confirm Administered Dose 4 mls @ as directed .ROUTE .STK-MED ONE Stop: 06/18/20 07:29 Lactated Ringer's (Ringers, Lactated) Confirm Administered Dose 1,000 mls @ as directed .ROUTE .STK-MED ONE Stop: 06/18/20 08:49 Lactated Ringer's (Ringers, Lactated) Confirm Administered Dose 2,000 mls @ as directed .ROUTE .STK-MED ONE Stop: 06/18/20 12:01 Sodium Chloride (Normal Saline) Confirm Administered Dose 100 mls @ as directed .ROUTE .STK-MED ONE Stop: 06/18/20 13:17 Lactated Ringer's (Ringers, Lactated) Confirm Administered Dose 1,000 mls @ as directed .ROUTE .STK-MED ONE Stop: 06/18/20 14:34 Lactated Ringer's (Ringers, Lactated) 1,000 mls @ 125 mls/hr IV ASDIRECTED KRANTHI Last Admin: 06/19/20 03:49 Dose: 125 mls/hr Documented by: Insulin Human Regular (Insulin Regular, Human 100 Units/Ml 3 Ml Vial) 0 unit IV ASDIRECTED PRN PRN Reason: Hyperglycemia Last Admin: 06/18/20 15:09 Dose: 1 unit Documented by: Ketamine HCl (Ketamine 500 Mg/10 Ml Mdv) Confirm Administered Dose 500 mg .ROUTE .STK-MED ONE Stop: 06/18/20 08:55 Ketorolac Tromethamine (Ketorolac 30 Mg/Ml Sdv) Confirm Administered Dose 30 mg .ROUTE .STK-MED ONE Stop: 06/18/20 09:04 Lidocaine/Sodium Bicarbonate (Lidocaine 1%/Sod Bicarbonate In Ns 8.4% 1 Ml Syringe) 0.25 ml IDERM ONETIME PRN PRN Reason: Prior to IV Start Stop: 06/18/20 18:00 Last Admin: 06/18/20 07:30 Dose: 0.25 ml Documented by: Midazolam HCl (Midazolam 1 Mg/Ml 2 Ml Sdv) Confirm Administered Dose 2 mg .ROUTE .STK-MED ONE Stop: 06/18/20 07:31 Miscellaneous Information (Remove Patch) 0 ea TRDERM ONETIME ONE Stop: 06/21/20 13:01 Neostigmine Methylsulfate (Neostigmine Methylsulfate 5 Mg/5 Ml Syringe) Confirm Administered Dose 0 mg .ROUTE .STK-MED ONE Stop: 06/18/20 09:04 Ondansetron HCl (Ondansetron 4 Mg/2 Ml Sdv) Confirm Administered Dose 4 mg .ROUTE .STK-MED ONE Stop: 06/18/20 07:32 Ondansetron HCl (Ondansetron 4 Mg/2 Ml Sdv) 4 mg IVPUSH ONETIME PRN PRN Reason: Nausea/Vomiting Ondansetron HCl (Ondansetron 4 Mg/2 Ml Sdv) Confirm Administered Dose 4 mg .ROUTE .STK-MED ONE Stop: 06/18/20 12:42 Propofol (Propofol 200 Mg/20 Ml Sdv) Confirm Administered Dose 200 mg .ROUTE .STK-MED ONE Stop: 06/18/20 07:29 Propofol (Propofol 200 Mg/20 Ml Sdv) Confirm Administered Dose 200 mg .ROUTE .STK-MED ONE Stop: 06/18/20 08:24 Rocuronium [place] (Rocuronium 50 Mg/5 Ml Vial) Confirm Administered Dose 50 mg .ROUTE .STK-MED ONE Stop: 06/18/20 07:31 Rocuronium [place] (Rocuronium 50 Mg/5 Ml Vial) Confirm Administered Dose 50 mg .ROUTE .STK-MED ONE Stop: 06/18/20 08:49 Rocuronium [place] (Rocuronium 50 Mg/5 Ml Vial) Confirm Administered Dose 50 mg .ROUTE .STK-MED ONE Stop: 06/18/20 10:48 Rocuronium [place] (Rocuronium 50 Mg/5 Ml Vial) Confirm Administered Dose 50 mg .ROUTE .STK-MED ONE Stop: 06/18/20 12:11 Scopolamine (Scopolamine 1.5 Mg Transdermal Patch) 1.5 mg TRDERM ONETIME ONE Stop: 06/18/20 13:01 Last Admin: 06/18/20 20:13 Dose: Not Given Documented by: Sodium Chloride (Sodium Chloride 0.9% 10 Ml Syringe) 10 ml FLUSH ASDIRECTED PRN PRN Reason: Keep Vein Open Stop: 06/18/20 18:00 - Exam Quality Assessment: Supplemental Oxygen General: Alert, Oriented Lungs: Normal Respiratory Effort Cardiovascular: Regular Rate, Regular Rhythm, No Murmurs GI/Abdominal Exam: Soft, No Distention, Tender (left lateral abdomen) - Patient Data Lab Results Last 24 hrs: Laboratory Results - last 24 hr 06/18/20 06/18/20 06/18/20 Range/Units 10:00 11:29 12:36 WBC (4.23-9.07) K/mm3 RBC (4.63-6.08) M/mm3 Hgb (13.7-17.5) gm/dl Hct (40.1-51.0) % MCV (79.0-92.2) fl MCH (25.7-32.2) pg MCHC (32.2-35.5) g/dl RDW Std Deviation (35.1-43.9) fL Plt Count (163-337) K/mm3 MPV (9.4-12.3) fl Neut % (Auto) (34.0-67.9) % Lymph % (Auto) (21.8-53.1) % [place] % (Auto) (5.3-12.2) % Eos % (Auto) (0.8-7.0) Baso % (Auto) (0.1-1.2) % Neut # (Auto) (1.78-5.38) K/mm3 Lymph # (Auto) (1.32-3.57) K/mm3 [place] # (Auto) (0.30-0.82) K/mm3 Eos # (Auto) (0.04-0.54) K/mm3 Baso # (Auto) (0.01-0.08) K/mm3 Manual Slide Review Sodium (136-145) mEq/L Potassium (3.5-5.1) mEq/L Chloride (98-107) mEq/L Carbon Dioxide (21-32) mEq/L Anion Gap (5-15) BUN (7-18) mg/dL Creatinine (0.7-1.3) mg/dL Est Cr Clr Drug Dosing mL/min Estimated GFR (MDRD) (>60) mL/min BUN/Creatinine Ratio (14-18) Glucose (74-106) mg/dL POC Glucose 214 H 242 H 293 H (70-105) mg/dL Calcium (8.5-10.1) mg/dL Total Bilirubin (0.2-1.0) mg/dL AST (15-37) U/L ALT (16-63) U/L Alkaline Phosphatase (46-116) U/L Total Protein (6.4-8.2) g/dl Albumin (3.4-5.0) g/dl Globulin gm/dL Albumin/Globulin Ratio (1-2) 06/18/20 06/18/20 06/18/20 Range/Units 13:23 13:59 14:29 WBC (4.23-9.07) K/mm3 RBC (4.63-6.08) M/mm3 Hgb (13.7-17.5) gm/dl Hct (40.1-51.0) % MCV (79.0-92.2) fl MCH (25.7-32.2) pg MCHC (32.2-35.5) g/dl RDW Std Deviation (35.1-43.9) fL Plt Count (163-337) K/mm3 MPV (9.4-12.3) fl Neut % (Auto) (34.0-67.9) % Lymph % (Auto) (21.8-53.1) % [place] % (Auto) (5.3-12.2) % Eos % (Auto) (0.8-7.0) Baso % (Auto) (0.1-1.2) % Neut # (Auto) (1.78-5.38) K/mm3 Lymph # (Auto) (1.32-3.57) K/mm3 [place] # (Auto) (0.30-0.82) K/mm3 Eos # (Auto) (0.04-0.54) K/mm3 Baso # (Auto) (0.01-0.08) K/mm3 Manual Slide Review Sodium (136-145) mEq/L Potassium (3.5-5.1) mEq/L Chloride (98-107) mEq/L Carbon Dioxide (21-32) mEq/L Anion Gap (5-15) BUN (7-18) mg/dL Creatinine (0.7-1.3) mg/dL Est Cr Clr Drug Dosing mL/min Estimated GFR (MDRD) (>60) mL/min BUN/Creatinine Ratio (14-18) Glucose (74-106) mg/dL POC Glucose 327 H 341 H 260 H (70-105) mg/dL Calcium (8.5-10.1) mg/dL Total Bilirubin (0.2-1.0) mg/dL AST (15-37) U/L ALT (16-63) U/L Alkaline Phosphatase (46-116) U/L Total Protein (6.4-8.2) g/dl Albumin (3.4-5.0) g/dl Globulin gm/dL Albumin/Globulin Ratio (1-2) 06/18/20 06/18/20 06/18/20 Range/Units 15:09 15:35 16:42 WBC (4.23-9.07) K/mm3 RBC (4.63-6.08) M/mm3 Hgb (13.7-17.5) gm/dl Hct (40.1-51.0) % MCV (79.0-92.2) fl MCH (25.7-32.2) pg MCHC (32.2-35.5) g/dl RDW Std Deviation (35.1-43.9) fL Plt Count (163-337) K/mm3 MPV (9.4-12.3) fl Neut % (Auto) (34.0-67.9) % Lymph % (Auto) (21.8-53.1) % [place] % (Auto) (5.3-12.2) % Eos % (Auto) (0.8-7.0) Baso % (Auto) (0.1-1.2) % Neut # (Auto) (1.78-5.38) K/mm3 Lymph # (Auto) (1.32-3.57) K/mm3 [place] # (Auto) (0.30-0.82) K/mm3 Eos # (Auto) (0.04-0.54) K/mm3 Baso # (Auto) (0.01-0.08) K/mm3 Manual Slide Review Sodium (136-145) mEq/L Potassium (3.5-5.1) mEq/L Chloride (98-107) mEq/L Carbon Dioxide (21-32) mEq/L Anion Gap (5-15) BUN (7-18) mg/dL Creatinine (0.7-1.3) mg/dL Est Cr Clr Drug Dosing mL/min Estimated GFR (MDRD) (>60) mL/min BUN/Creatinine Ratio (14-18) Glucose (74-106) mg/dL POC Glucose 223 H 195 H 212 H (70-105) mg/dL Calcium (8.5-10.1) mg/dL Total Bilirubin (0.2-1.0) mg/dL AST (15-37) U/L ALT (16-63) U/L Alkaline Phosphatase (46-116) U/L Total Protein (6.4-8.2) g/dl Albumin (3.4-5.0) g/dl Globulin gm/dL Albumin/Globulin Ratio (1-2) 06/19/20 06/19/20 Range/Units 04:52 04:52 WBC 13.53 H (4.23-9.07) K/mm3 RBC 5.09 (4.63-6.08) M/mm3 Hgb 14.4 D (13.7-17.5) gm/dl Hct 44.6 (40.1-51.0) % MCV 87.6 (79.0-92.2) fl MCH 28.3 (25.7-32.2) pg MCHC 32.3 (32.2-35.5) g/dl RDW Std Deviation 46.1 H (35.1-43.9) fL Plt Count 246 D (163-337) K/mm3 MPV 10.1 (9.4-12.3) fl Neut % (Auto) 80.5 H (34.0-67.9) % Lymph % (Auto) 8.5 L (21.8-53.1) % [place] % (Auto) 10.7 (5.3-12.2) % Eos % (Auto) 0 L (0.8-7.0) Baso % (Auto) 0.1 (0.1-1.2) % Neut # (Auto) 10.89 H (1.78-5.38) K/mm3 Lymph # (Auto) 1.15 L (1.32-3.57) K/mm3 [place] # (Auto) 1.45 H (0.30-0.82) K/mm3 Eos # (Auto) 0.00 L (0.04-0.54) K/mm3 Baso # (Auto) 0.01 (0.01-0.08) K/mm3 Manual Slide Review Abnormal smear Sodium 139 (136-145) mEq/L Potassium 4.5 (3.5-5.1) mEq/L Chloride 105 (98-107) mEq/L Carbon Dioxide 23 (21-32) mEq/L Anion Gap 15.5 H (5-15) BUN 22 H (7-18) mg/dL Creatinine 1.3 (0.7-1.3) mg/dL Est Cr Clr Drug Dosing 75.12 mL/min Estimated GFR (MDRD) 57 (>60) mL/min BUN/Creatinine Ratio 16.9 (14-18) Glucose 286 H (74-106) mg/dL POC Glucose (70-105) mg/dL Calcium 8.6 (8.5-10.1) mg/dL Total Bilirubin 0.7 (0.2-1.0) mg/dL AST 983 H (15-37) U/L ALT 1150 H (16-63) U/L Alkaline Phosphatase 71 (46-116) U/L Total Protein 6.1 L (6.4-8.2) g/dl Albumin 2.7 L (3.4-5.0) g/dl Globulin 3.4 gm/dL Albumin/Globulin Ratio 0.8 L (1-2) Result Diagrams: 06/19/20 04:52 06/19/20 04:52 Sepsis Event Note - Evaluation Sepsis Screening Result: No Definite Risk - Focused Exam Vital Signs: Vital Signs Temp Pulse Resp BP Pulse Ox 06/19/20 07:56 99.0 F 91 16 125/63 95 06/19/20 03:47 99.0 F 100 18 117/67 96 06/19/20 00:08 99.0 F 103 H 92 L 06/19/20 00:07 100.0 F 103 H 18 110/53 L 95 06/18/20 23:32 108 H 131/57 L 94 L 06/18/20 23:01 108 H 133/55 L 95 06/18/20 22:32 107 H 115/54 L 93 L 06/18/20 22:02 106 H 127/55 L 93 L - Problem List Review Problem List Initiated/Reviewed/Updated: No - My Orders Last 24 Hours: My Active Orders 06/18/20 16:57 Resuscitation Status Routine 06/18/20 17:07 oxyCODONE 5 mg PO Q4H PRN 06/18/20 17:09 HYDROmorphone [Dilaudid] 1 mg IVPUSH Q2H PRN polyethylene glycoL 3350 [MiraLAX] 17 gm PO DAILY PRN 06/18/20 17:09 Patient Status [ADT] Routine Ambulate [RC] .TID Antiembolic Devices [RC] BID Cardiac Monitoring [RC] . DIRECTED Diabetes Education [RC] Click to Edit Intake and Output [RC] 04,16 Oxygen Therapy [RC] PRN Pulse Oximetry [RC] CONTINUOUS RT Incentive Spirometry [RC] Q1HWA Up ad Flori [RC] QSHIFT Urinary Catheter Assessment [RC] 04,10,16,22 Urinary Catheter Removal [RC] PER UNIT ROUTINE VTE/DVT Education [RC] DAILY Vital Signs [RC] Q4HR Abdominal Binder [OM.PC] Per Unit Routine DVT/VTE Prophylaxis Reflex [OM.PC] Routine Glucose Management Sub Q Reflex [OM.PC] Routine 06/18/20 18:00 Ondansetron [Zofran] 4 mg IVPUSH Q6H 06/18/20 18:10 Communication Order [RC] 06/18/20 19:29 Communication Order [RC] 06/18/20 23:26 Sequential Compression Device [OM.PC] Routine 06/19/20 Breakfast Full Liquid Diet [DIET] 06/19/20 09:00 Pantoprazole [ProTONIX IV] 40 mg IVPUSH DAILY 06/20/20 05:11 CBC WITH AUTO DIFF [HEME] AM COMPREHENSIVE METABOLIC PN,CMP [CHEM] AM 06/21/20 05:11 CBC WITH AUTO DIFF [HEME] AM COMPREHENSIVE METABOLIC PN,CMP [CHEM] AM - Assessment Assessment:: POD1 lap hiatal hernia repair with partial fundoplication. Has left lateral abd pain but otherwise tolerating clears. - Plan Plan:: - advance diet to FLD - dc IVF - all pills to be crushed - OOb to ambulate - IS - will observe him in the hospital
[2020-06-19] MEDS ORDERED: PROMETHAZINE 50 MG/ML TOP PRN (09:52)
[2020-06-19] MEDS ORDERED: Patient's Own Medication 1 Each SCH (11:00)
[2020-06-19] MEDS: Lisinopril 2.5 MG Tab PO SCH (11:01)
[2020-06-19] MEDS ORDERED: [UNRECOGNIZED DRUG - REMARK] SCH (12:00)
[2020-06-19] MEDS: Ketorolac 15 MG/ML SDV IVPUSH PRN (23:09)
[2020-06-20] MEDS: Ondansetron 4 MG/2 ML SDV IVPUSH SCH ×4 (05:24→18:58)
[2020-06-20] MEDS ORDERED: HYDROmorphone 1 MG/ML Syringe IVPUSH PRN (08:00)
[2020-06-20] MEDS: Potassium Chloride 10 MEQ in Premix Bag 1 BAG IV SCH ×4 (08:24→16:52)
[2020-06-20] MEDS: Ketorolac 15 MG/ML SDV IVPUSH PRN (08:26)
[2020-06-20] MEDS: Lisinopril 2.5 MG Tab PO SCH (08:46)
[2020-06-20] MEDS: Pantoprazole 40 MG Vial IVPUSH SCH (08:47)
[2020-06-20] MEDS ORDERED: Non-Formulary Medication 1 Each (Ubidecarenone 100 MG Capsule) PO SCH (09:00)
[2020-06-20] MEDS ORDERED: Multivitamins,Therapeutic Tab PO SCH (09:00)
[2020-06-20] MEDS ORDERED: Simvastatin 10 MG Tab PO SCH (09:00)
[2020-06-20] MEDS ORDERED: Zinc Sulfate 220 MG Cap PO SCH (09:00)
[2020-06-20] MEDS ORDERED: Magnesium Oxide 400 MG Tab PO SCH (09:00)
[2020-06-20] MEDS ORDERED: Cholecalciferol (Vitamin D3) 25 MCG Tab PO SCH (09:00)
[2020-06-20] MEDS ORDERED: Ascorbic Acid 500 MG Tab PO SCH (09:00)
[2020-06-20] MEDS ORDERED: Fish Oil/Omega-3 Fatty Acids 1 Gm Cap PO SCH (09:00)
[2020-06-20] MEDS ORDERED: Tamsulosin 0.4 MG Cap.ER PO SCH (09:45)
[2020-06-20] MEDS ORDERED: Sodium Chloride 0.9% 250 ML IV SCH (10:15)
[2020-06-20] MEDS: oxyCODONE 5 MG Tab PO PRN ×3 (10:33→18:59)
--- NOTE | 2020-06-20 10:58 | PCM.PN ---
- General Info Date of Service: 06/20/20 Subjective Update: Tolerating FLD, ambulating. Still has a lot of pain from the left lateral abdominal incision. Has not been able to urinate despite 2 straight caths. Functional Status: Reports: Tolerating Diet, Ambulating - Review of Systems General: Reports: No Symptoms HEENT: Reports: No Symptoms Pulmonary: Reports: No Symptoms Cardiovascular: Reports: No Symptoms Gastrointestinal: Reports: Abdominal Pain (post operative) Genitourinary: Reports: No Symptoms Musculoskeletal: Reports: No Symptoms Skin: Reports: No Symptoms Neurological: Reports: No Symptoms Psychiatric: Reports: No Symptoms - Patient Data Vitals - Most Recent: Last Vital Signs Temp 98.4 F 06/20/20 07:43 Pulse 87 06/20/20 07:43 Resp 16 06/20/20 07:43 BP 131/69 06/20/20 08:46 Pulse Ox 94 L 06/20/20 09:19 Weight - Most Recent: 124.965 kg I&O - Last 24 Hours: Intake & Output 06/19/20 06/20/20 06/20/20 22:59 06:59 14:59 Intake Total 2260 200 420 Output Total 1150 1650 Balance 1110 -1450 420 Lab Results Last 24 Hours: Laboratory Results - last 24 hr 06/20/20 06/20/20 06/20/20 Range/Units 04:45 04:45 04:48 WBC 10.59 H (4.23-9.07) K/mm3 RBC 4.96 (4.63-6.08) M/mm3 Hgb 14.1 (13.7-17.5) gm/dl Hct 43.2 (40.1-51.0) % MCV 87.1 (79.0-92.2) fl MCH 28.4 (25.7-32.2) pg MCHC 32.6 (32.2-35.5) g/dl RDW Std Deviation 45.5 H (35.1-43.9) fL Plt Count 211 (163-337) K/mm3 MPV 9.7 (9.4-12.3) fl Neut % (Auto) 66.5 (34.0-67.9) % Lymph % (Auto) 20.4 L (21.8-53.1) % [place] % (Auto) 12.1 (5.3-12.2) % Eos % (Auto) 0.5 L (0.8-7.0) Baso % (Auto) 0.3 (0.1-1.2) % Neut # (Auto) 7.05 H (1.78-5.38) K/mm3 Lymph # (Auto) 2.16 (1.32-3.57) K/mm3 [place] # (Auto) 1.28 H (0.30-0.82) K/mm3 Eos # (Auto) 0.05 (0.04-0.54) K/mm3 Baso # (Auto) 0.03 (0.01-0.08) K/mm3 Sodium 139 (136-145) mEq/L Potassium 3.4 L (3.5-5.1) mEq/L Chloride 102 (98-107) mEq/L Carbon Dioxide 29 (21-32) mEq/L Anion Gap 11.4 (5-15) BUN 18 (7-18) mg/dL Creatinine 1.2 (0.7-1.3) mg/dL Est Cr Clr Drug Dosing 81.38 mL/min Estimated GFR (MDRD) > 60 (>60) mL/min BUN/Creatinine Ratio 15.0 (14-18) Glucose 144 H (74-106) mg/dL Calcium 8.7 (8.5-10.1) mg/dL Phosphorus 2.6 (2.6-4.7) mg/dL Magnesium 2.0 (1.8-2.4) mg/dl Total Bilirubin 0.8 (0.2-1.0) mg/dL AST 455 H (15-37) U/L ALT 842 H (16-63) U/L Alkaline Phosphatase 75 (46-116) U/L Total Protein 6.4 (6.4-8.2) g/dl Albumin 2.8 L (3.4-5.0) g/dl Globulin 3.6 gm/dL Albumin/Globulin Ratio 0.8 L (1-2) Med Orders - Current: Current Medications Ascorbic Acid (Ascorbic Acid 500 Mg Tab) 500 mg PO DAILY [facility] Last Admin: 06/20/20 08:46 Dose: 500 mg Documented by: Cholecalciferol (Cholecalciferol (Vitamin D3) 25 Mcg Tab) 25 mcg PO DAILY [facility] Last Admin: 06/20/20 08:47 Dose: 25 mcg Documented by: Fish Oil (Fish Oil/[place]-3 Fatty Acids 1 Gm Cap) 1 gm PO DAILY [facility] Last Admin: 06/20/20 08:46 Dose: 1 gm Documented by: Potassium Chloride 10 meq/ (Premix) 100 mls @ 100 mls/hr IV Q1H [facility] Stop: 06/20/20 11:44 Last Admin: 06/20/20 08:24 Dose: 100 mls/hr Documented by: Sodium Chloride (Normal Saline) 250 mls @ 50 mls/hr IV ASDIRECTED [facility] Ketorolac Tromethamine (Ketorolac 15 Mg/Ml Sdv) 15 mg IVPUSH Q8H PRN PRN Reason: Pain Last Admin: 06/20/20 08:26 Dose: 15 mg Documented by: Lisinopril (Lisinopril 2.5 Mg Tab) 2.5 mg PO DAILY [facility] Last Admin: 06/20/20 08:46 Dose: 2.5 mg Documented by: Magnesium Oxide (Magnesium Oxide 400 Mg Tab) 400 mg PO DAILY [facility] Last Admin: 06/20/20 08:47 Dose: 400 mg Documented by: Multivitamins (Multivitamins,Therapeutic Tab) 1 each PO DAILY [facility] Last Admin: 06/20/20 08:47 Dose: 1 each Documented by: Ondansetron HCl (Ondansetron 4 Mg/2 Ml Sdv) 4 mg IVPUSH Q6H [facility] Last Admin: 06/20/20 05:24 Dose: 4 mg Documented by: Oxycodone HCl (Oxycodone 5 Mg Tab) 5 mg PO Q4H PRN PRN Reason: Pain (moderate 4-6) Last Admin: 06/20/20 10:33 Dose: 5 mg Documented by: Promethazine Plo Transdermal Gel 50 Mg/Ml 0 each TOP Q6H PRN PRN Reason: Nausea Insulin Pump Uses (Fiasp Insulin) 0 each .XX ASDIRECTED [facility] Polyethylene Glycol (Polyethylene Glycol 3350 Powder 17 Gm Packet) 17 gm PO DAILY PRN PRN Reason: Constipation Simvastatin (Simvastatin 10 Mg Tab) 10 mg PO DAILY [facility] Last Admin: 06/20/20 08:47 Dose: 10 mg Documented by: Tamsulosin HCl (Tamsulosin 0.4 Mg Cap.Er) 0.4 mg PO DAILY [facility] Zinc Sulfate (Zinc Sulfate 220 Mg Cap) 220 mg PO DAILY [facility] Last Admin: 06/20/20 08:47 Dose: 220 mg Documented by: Discontinued Medications Bupivacaine HCl/Epinephrine Bitart (Bupivacaine 0.5%/Epinephrine 1:200,000 50 Ml Mdv) Confirm Administered Dose 50 ml .ROUTE .STK-MED ONE Stop: 06/18/20 07:33 Bupivacaine HCl/Epinephrine Bitart (Bupivacaine 0.5%/Epinephrine 1:200,000 50 Ml Mdv) Confirm Administered Dose 50 ml .ROUTE .STK-MED ONE Stop: 06/18/20 09:13 Last Admin: 06/18/20 08:55 Dose: 60 ml Documented by: Cefazolin Sodium (Cefazolin 1 Gm Vial) Confirm Administered Dose 3 gm .ROUTE .STK-MED ONE Stop: 06/18/20 07:33 Cefazolin Sodium (Cefazolin 1 Gm Vial) Confirm Administered Dose 2 gm .ROUTE .STK-MED ONE Stop: 06/18/20 12:10 Dexamethasone (Dexamethasone 4 Mg/Ml 5 Ml Mdv) Confirm Administered Dose 20 mg .ROUTE .STK-MED ONE Stop: 06/18/20 07:32 Diphenhydramine HCl (Diphenhydramine 50 Mg/Ml Sdv) 25 mg IVPUSH Q6H PRN PRN Reason: pruritis Fentanyl (Fentanyl 100 Mcg/2 Ml Sdv) Confirm Administered Dose 100 mcg .ROUTE .STK-MED ONE Stop: 06/18/20 07:32 Fentanyl (Fentanyl 100 Mcg/2 Ml Sdv) Confirm Administered Dose 100 mcg .ROUTE .STK-MED ONE Stop: 06/18/20 16:04 Fentanyl (Fentanyl 100 Mcg/2 Ml Sdv) Confirm Administered Dose 100 mcg .ROUTE .STK-MED ONE Stop: 06/18/20 16:34 Fentanyl (Fentanyl 100 Mcg/2 Ml Sdv) 50 mcg IVPUSH Q5M PRN PRN Reason: Pain Glycopyrrolate (Glycopyrrolate 0.2 Mg/Ml 2 Ml Syringe) Confirm Administered Dose 0.4 mg .ROUTE .STK-MED ONE Stop: 06/18/20 09:04 Hydromorphone HCl (Hydromorphone 0.5 Mg/0.5 Ml Syringe) Confirm Administered Dose 0.5 mg .ROUTE .STK-MED ONE Stop: 06/18/20 08:50 Hydromorphone HCl (Hydromorphone 0.5 Mg/0.5 Ml Syringe) Confirm Administered Dose 0.5 mg .ROUTE .STK-MED ONE Stop: 06/18/20 09:33 Hydromorphone HCl (Hydromorphone 0.5 Mg/0.5 Ml Syringe) Confirm Administered Dose 0.5 mg .ROUTE .ST-MED ONE Stop: 06/18/20 10:24 Hydromorphone HCl (Hydromorphone 0.5 Mg/0.5 Ml Syringe) Confirm Administered Dose 0.5 mg .ROUTE .STK-MED ONE Stop: 06/18/20 12:01 Hydromorphone HCl (Hydromorphone 0.5 Mg/0.5 Ml Syringe) Confirm Administered Dose 0.5 mg .ROUTE .ST-MED ONE Stop: 06/18/20 13:39 Hydromorphone HCl (Hydromorphone 0.5 Mg/0.5 Ml Syringe) Confirm Administered Dose 0.5 mg .ROUTE .[facility]-MED ONE Stop: 06/18/20 14:48 Hydromorphone HCl (Hydromorphone 0.5 Mg/0.5 Ml Syringe) 1 mg IVPUSH Q2H PRN PRN Reason: Pain (severe 7-10) Last Admin: 06/19/20 19:41 Dose: 1 mg Documented by: Hydromorphone HCl (Hydromorphone 1 Mg/Ml Syringe) 1 mg IVPUSH Q2H PRN PRN Reason: Pain (severe 7-10) Lactated Ringer's (Ringers, Lactated) 1,000 mls @ 125 mls/hr IV ASDIRECTED [facility] Stop: 06/18/20 23:00 Last Admin: 06/18/20 07:30 Dose: 125 mls/hr Documented by: Lidocaine HCl (Xylocaine-Mpf 1%) Confirm Administered Dose 4 mls @ as directed .ROUTE .ST-MED ONE Stop: 06/18/20 07:29 Lactated Ringer's (Ringers, Lactated) Confirm Administered Dose 1,000 mls @ as directed .ROUTE .ST-MED ONE Stop: 06/18/20 08:49 Lactated Ringer's (Ringers, Lactated) Confirm Administered Dose 2,000 mls @ as directed .ROUTE .ST-MED ONE Stop: 06/18/20 12:01 Sodium Chloride (Normal Saline) Confirm Administered Dose 100 mls @ as directed .ROUTE .STK-MED ONE Stop: 06/18/20 13:17 Lactated Ringer's (Ringers, Lactated) Confirm Administered Dose 1,000 mls @ as directed .ROUTE .STK-MED ONE Stop: 06/18/20 14:34 Lactated Ringer's (Ringers, Lactated) 1,000 mls @ 125 mls/hr IV ASDIRECTED [facility] Last Admin: 06/19/20 03:49 Dose: 125 mls/hr Documented by: Insulin Human Regular (Insulin Regular, Human 100 Units/Ml 3 Ml Vial) 0 unit IV ASDIRECTED PRN PRN Reason: Hyperglycemia Last Admin: 06/18/20 15:09 Dose: 1 unit Documented by: Ketamine HCl (Ketamine 500 Mg/10 Ml Mdv) Confirm Administered Dose 500 mg .ROUTE .STK-MED ONE Stop: 06/18/20 08:55 Ketorolac Tromethamine (Ketorolac 30 Mg/Ml Sdv) Confirm Administered Dose 30 mg .ROUTE .STK-MED ONE Stop: 06/18/20 09:04 Lidocaine/Sodium Bicarbonate (Lidocaine 1%/Sod Bicarbonate In Ns 8.4% 1 Ml Syringe) 0.25 ml IDERM ONETIME PRN PRN Reason: Prior to IV Start Stop: 06/18/20 18:00 Last Admin: 06/18/20 07:30 Dose: 0.25 ml Documented by: Midazolam HCl (Midazolam 1 Mg/Ml 2 Ml Sdv) Confirm Administered Dose 2 mg .ROUTE .STK-MED ONE Stop: 06/18/20 07:31 Miscellaneous Information (Remove Patch) 0 ea TRDERM ONETIME ONE Stop: 06/21/20 13:01 Neostigmine Methylsulfate (Neostigmine Methylsulfate 5 Mg/5 Ml Syringe) Confirm Administered Dose 0 mg .ROUTE .STK-MED ONE Stop: 06/18/20 09:04 Non-Formulary Medication (Ubidecarenone) 100 mg PO DAILY [facility] Ondansetron HCl (Ondansetron 4 Mg/2 Ml Sdv) Confirm Administered Dose 4 mg .ROUTE .STK-MED ONE Stop: 06/18/20 07:32 Ondansetron HCl (Ondansetron 4 Mg/2 Ml Sdv) 4 mg IVPUSH ONETIME PRN PRN Reason: Nausea/Vomiting Ondansetron HCl (Ondansetron 4 Mg/2 Ml Sdv) Confirm Administered Dose 4 mg .ROUTE .STK-MED ONE Stop: 06/18/20 12:42 Pantoprazole Sodium (Pantoprazole 40 Mg Vial) 40 mg IVPUSH DAILY [facility] Last Admin: 06/20/20 08:47 Dose: 40 mg Documented by: Patient Own Medication (Patient's Own Medication 1 Each) 0 each .XX ASDIRECTED [facility] Propofol (Propofol 200 Mg/20 Ml Sdv) Confirm Administered Dose 200 mg .ROUTE .STK-MED ONE Stop: 06/18/20 07:29 Propofol (Propofol 200 Mg/20 Ml Sdv) Confirm Administered Dose 200 mg .ROUTE .STK-MED ONE Stop: 06/18/20 08:24 Rocuronium [place] (Rocuronium 50 Mg/5 Ml Vial) Confirm Administered Dose 50 mg .ROUTE .STK-MED ONE Stop: 06/18/20 07:31 Rocuronium [place] (Rocuronium 50 Mg/5 Ml Vial) Confirm Administered Dose 50 mg .ROUTE .STK-MED ONE Stop: 06/18/20 08:49 Rocuronium [place] (Rocuronium 50 Mg/5 Ml Vial) Confirm Administered Dose 50 mg .ROUTE .STK-MED ONE Stop: 06/18/20 10:48 Rocuronium [place] (Rocuronium 50 Mg/5 Ml Vial) Confirm Administered Dose 50 mg .ROUTE .STK-MED ONE Stop: 06/18/20 12:11 Scopolamine (Scopolamine 1.5 Mg Transdermal Patch) 1.5 mg TRDERM ONETIME ONE Stop: 06/18/20 13:01 Last Admin: 06/18/20 20:13 Dose: Not Given Documented by: Sodium Chloride (Sodium Chloride 0.9% 10 Ml Syringe) 10 ml FLUSH ASDIRECTED PRN PRN Reason: Keep Vein Open Stop: 06/18/20 18:00 - Exam General: Alert, Oriented, Cooperative Lungs: Clear to Auscultation Cardiovascular: Regular Rate, Regular Rhythm GI/Abdominal Exam: Normal Bowel Sounds, Tender (Left lateral abdomen) - Patient Data Lab Results Last 24 hrs: Laboratory Results - last 24 hr 0306/20/20 06/20/20 Range/Units 04:45 04:45 04:48 WBC 10.59 H (4.23-9.07) K/mm3 RBC 4.96 (4.63-6.08) M/mm3 Hgb 14.1 (13.7-17.5) gm/dl Hct 43.2 (40.1-51.0) % MCV 87.1 (79.0-92.2) fl MCH 28.4 (25.7-32.2) pg MCHC 32.6 (32.2-35.5) g/dl RDW Std Deviation 45.5 H (35.1-43.9) fL Plt Count 211 (163-337) K/mm3 MPV 9.7 (9.4-12.3) fl Neut % (Auto) 66.5 (34.0-67.9) % Lymph % (Auto) 20.4 L (21.8-53.1) % [place] % (Auto) 12.1 (5.3-12.2) % Eos % (Auto) 0.5 L (0.8-7.0) Baso % (Auto) 0.3 (0.1-1.2) % Neut # (Auto) 7.05 H (1.78-5.38) K/mm3 Lymph # (Auto) 2.16 (1.32-3.57) K/mm3 [place] # (Auto) 1.28 H (0.30-0.82) K/mm3 Eos # (Auto) 0.05 (0.04-0.54) K/mm3 Baso # (Auto) 0.03 (0.01-0.08) K/mm3 Sodium 139 (136-145) mEq/L Potassium 3.4 L (3.5-5.1) mEq/L Chloride 102 (98-107) mEq/L Carbon Dioxide 29 (21-32) mEq/L Anion Gap 11.4 (5-15) BUN 18 (7-18) mg/dL Creatinine 1.2 (0.7-1.3) mg/dL Est Cr Clr Drug Dosing 81.38 mL/min Estimated GFR (MDRD) > 60 (>60) mL/min BUN/Creatinine Ratio 15.0 (14-18) Glucose 144 H (74-106) mg/dL Calcium 8.7 (8.5-10.1) mg/dL Phosphorus 2.6 (2.6-4.7) mg/dL Magnesium 2.0 (1.8-2.4) mg/dl Total Bilirubin 0.8 (0.2-1.0) mg/dL AST 455 H (15-37) U/L ALT 842 H (16-63) U/L Alkaline Phosphatase 75 (46-116) U/L Total Protein 6.4 (6.4-8.2) g/dl Albumin 2.8 L (3.4-5.0) g/dl Globulin 3.6 gm/dL Albumin/Globulin Ratio 0.8 L (1-2) Result Diagrams: 06/20/20 04:45 06/20/20 04:45 Sepsis Event Note - Evaluation Sepsis Screening Result: No Definite Risk - Focused Exam Vital Signs: Vital Signs Temp Pulse Resp BP Pulse Ox Pulse Ox 06/20/20 09:19 94 L 06/20/20 08:46 131/69 06/20/20 07:43 98.4 F 87 16 131/69 94 L 06/20/20 07:35 95 06/20/20 07:29 96 06/20/20 04:37 97.9 F 87 20 126/67 97 06/19/20 23:47 88 92 L 06/19/20 23:21 99.3 F 89 16 118/62 85 L - Problem List Review Problem List Initiated/Reviewed/Updated: No - My Orders Last 24 Hours: My Active Orders 06/19/20 10:00 lisinopriL [Prinivil] 2.5 mg PO DAILY 06/19/20 10:55 Consult to Physical Therapy [PT Evaluation and Treatment] [CONS] Routine 06/19/20 12:00 Patient's Own Medication [Ptom] 0 each .XX ASDIRECTED 06/19/20 14:29 Bladder Scan [RC] ASDIRECTED 06/19/20 15:59 Ketorolac [Toradol] 15 mg IVPUSH Q8H PRN 06/19/20 16:01 Communication Order [RC] DAILY 06/20/20 07:45 Potassium Chloride [KCl in Water 10 MEQ/100 ML] 10 meq Premix Bag 1 bag IV Q1H 06/20/20 09:00 Ascorbic Acid [Vitamin C] 500 mg PO DAILY Cholecalciferol (Vitamin D3) [Vitamin D3] 25 mcg PO DAILY Fish Oil/[place]-3 Fatty Acids [Fish Oil] 1 gm PO DAILY Magnesium Oxide 400 mg PO DAILY Multivitamins,Therapeutic [Thera] 1 each PO DAILY Simvastatin [Zocor] 10 mg PO DAILY Zinc Sulfate [Zincate] 220 mg PO DAILY 06/20/20 09:41 Urinary Catheter Assessment [RC] ASDIRECTED 06/20/20 09:45 Insert Romero Catheter [Insert Urinary Catheter] [OM.PC] Q24H Tamsulosin [Flomax] 0.4 mg PO DAILY 06/20/20 10:15 Sodium Chloride 0.9% [Normal Saline] 250 ml IV ASDIRECTED 06/21/20 05:11 CBC WITH AUTO DIFF [HEME] AM COMPREHENSIVE METABOLIC PN,CMP [CHEM] AM - Assessment Assessment:: POD2 lap hiatal hernia repair with partial fundoplication. Has left lateral abd pain but otherwise tolerating FLD. Unable to urinate - Plan Plan:: - Will try one more straight cath. If unable to urinate after that, then we will place a romero catheter and he will likely be discharged with it - continue FLD. Patient will be discharged on FLD - Will try pain control with PO pain meds only. If pain is still severe after PO meds, then we will give another dose of Toradol - Encourage ambulation - Off of supplemental oxygen now. Continue to encourage IS - Repleted Potassium today. Anticipate discharge to home tomorrow with or without a romero catheter.
[2020-06-20] MEDS ORDERED: Lactated Ringers 1,000 ML ONE (15:03)
[2020-06-20 16:30] VITALS: BP 118/63; PULSE 94
--- NOTE | 2020-06-20 18:34 | PCM.DCSUM1 ---
Discharge Summary - Hospital Course Free Text/Narrative:: Patient had symptomatic hiatal hernia and GERD. he underwent lap hiatal hernia repair with partial fundoplication. His post op stay was complicated by urinary retention and post op pain. He was eventually able to void and tolerated full liquid diet, pain controlled with orals and was able to ambulate. He was discharged to home in stable condition. Diagnosis: Stroke: No - Discharge Data Discharge Date: 06/20/20 Discharge Disposition: Home, Self-Care 01 Condition: Good - Referral to Home Health Primary Care Physician: Woody Toney MD - Patient Summary/Data Consults: Consultations 06/19/20 10:55 Consult to Physical Therapy [PT Evaluation and Treatment] [CONS] Routine - Patient Instructions Diet: Full Liquid Diet (Discharge instructions provided to the patient), Mechanical Soft (May start this on 06/25/2020) Activity: No Lifting Over 20 Pounds (for 4 weeks) Driving: Do Not Drive (until when not taking opioid pain medications) Showering/Bathing: May Shower, No Tub Bathing/Swimming Wound/Incision Care: Keep Operative Site/Wound Site Clean and Dry Notify Provider of: Fever, Increased Pain, Swelling and Redness Other/Special Instructions: - Continue to ambulate, follow provided diet instructions. - Continue Full Liquid diet for 1 week from surgery, then you may advance to mechanical soft on 06/25/2020. - Remember to eat small frequent meals, chew the food well prior to swallowing. - Take prescribed Zofran if you become nauseated. - Discharge Plan *PRESCRIPTION DRUG MONITORING PROGRAM REVIEWED*: No *COPY OF PRESCRIPTION DRUG MONITORING REPORT IN PATIENT [place]: No Prescriptions/Med Rec: polyethylene glycoL 3350 [MiraLAX] 17 gm PO DAILY 10 Days #20 packet oxyCODONE 5 mg PO Q6H PRN 5 Days #20 tablet PRN Reason: Pain (Severe 7-10) Ondansetron [Zofran ODT] 4 mg PO Q6H PRN #10 tab.dis PRN Reason: Nausea Home Medications: Home Meds Ascorbate Calcium [Vitamin C] 500 mg PO DAILY 02/16/20 [History] Cholecalciferol (Vitamin D3) [Vitamin D3] 1,000 unit PO DAILY 02/16/20 [History] Fish Oil/[place]-3 Fatty Acids [Fish Oil 1,000 MG] 4 - 5 gm PO DAILY 02/16/20 [History] Insulin Aspart (Niacinamide) [Fiasp 100 Unit/ml Vial] 1 dose SQ ASDIRECTED 02/16/20 [History] Magnesium Oxide 500 mg PO DAILY 02/16/20 [History] Promethazine [Phenergan] 1 dose TOP ASDIRECTED PRN 02/16/20 [History] Vitamin B Complex 1 cap PO DAILY 02/16/20 [History] lisinopriL [Lisinopril] 2.5 mg PO DAILY 02/16/20 [History] Rosuvastatin [Crestor] 5 mg PO DAILY 06/15/20 [History] Ubidecarenone [Coq-10] 100 mg PO DAILY 06/15/20 [History] Zinc 50 mg PO DAILY 06/15/20 [History] Ondansetron [Zofran ODT] 4 mg PO Q6H PRN #10 tab.dis 06/20/20 [Rx] oxyCODONE 5 mg PO Q6H PRN 5 Days #20 tablet 06/20/20 [Rx] polyethylene glycoL 3350 [MiraLAX] 17 gm PO DAILY 10 Days #20 packet 06/20/20 [Rx] Oxygen Therapy Mode: Room Air Referrals: Woody Toney MD [Primary Care Provider] - García Abdalla MD [Physician] - 06/28/20 8:15 am (check in at 8:15 and appt. is at 8:30) - Discharge Summary/Plan Comment DC Time >30 min.: Yes - General Info Date of Service: 06/20/20 Admission Dx/Problem (Free Text: Hiatal hernia repair Subjective Update: Tolerating FLD, ambulating. Still has a lot of pain from the left lateral abdominal incision. Has not been able to urinate despite 2 straight caths. Functional Status: Reports: Pain Controlled, Tolerating Diet, Ambulating, Urinating - Review of Systems General: Reports: No Symptoms HEENT: Reports: No Symptoms Pulmonary: Reports: No Symptoms Cardiovascular: Reports: No Symptoms Gastrointestinal: Reports: Abdominal Pain (post op) Genitourinary: Reports: No Symptoms Musculoskeletal: Reports: No Symptoms Skin: Reports: No Symptoms Neurological: Reports: No Symptoms Psychiatric: Reports: No Symptoms - Patient Data Vitals - Most Recent: Last Vital Signs Temp 99.0 F 06/20/20 16:26 Pulse 94 06/20/20 16:26 Resp 20 06/20/20 16:26 BP 118/63 06/20/20 16:26 Pulse Ox 94 L 06/20/20 16:36 Weight - Most Recent: 124.965 kg I&O - Last 24 hours: Intake & Output 06/20/20 06/20/20 06/20/20 06:59 14:59 22:59 Intake Total 052 530 1751 Output Total 1650 750 Balance -1559 448 5403 Lab Results - Last 24 hrs: Laboratory Results - last 24 hr 06/20/20 06/20/20 06/20/20 Range/Units 04:45 04:45 04:48 WBC 10.59 H (4.23-9.07) K/mm3 RBC 4.96 (4.63-6.08) M/mm3 Hgb 14.1 (13.7-17.5) gm/dl Hct 43.2 (40.1-51.0) % MCV 87.1 (79.0-92.2) fl MCH 28.4 (25.7-32.2) pg MCHC 32.6 (32.2-35.5) g/dl RDW Std Deviation 45.5 H (35.1-43.9) fL Plt Count 211 (163-337) K/mm3 MPV 9.7 (9.4-12.3) fl Neut % (Auto) 66.5 (34.0-67.9) % Lymph % (Auto) 20.4 L (21.8-53.1) % [place] % (Auto) 12.1 (5.3-12.2) % Eos % (Auto) 0.5 L (0.8-7.0) Baso % (Auto) 0.3 (0.1-1.2) % Neut # (Auto) 7.05 H (1.78-5.38) K/mm3 Lymph # (Auto) 2.16 (1.32-3.57) K/mm3 [place] # (Auto) 1.28 H (0.30-0.82) K/mm3 Eos # (Auto) 0.05 (0.04-0.54) K/mm3 Baso # (Auto) 0.03 (0.01-0.08) K/mm3 Sodium 139 (136-145) mEq/L Potassium 3.4 L (3.5-5.1) mEq/L Chloride 102 (98-107) mEq/L Carbon Dioxide 29 (21-32) mEq/L Anion Gap 11.4 (5-15) BUN 18 (7-18) mg/dL Creatinine 1.2 (0.7-1.3) mg/dL Est Cr Clr Drug Dosing 81.38 mL/min Estimated GFR (MDRD) > 60 (>60) mL/min BUN/Creatinine Ratio 15.0 (14-18) Glucose 144 H (74-106) mg/dL Calcium 8.7 (8.5-10.1) mg/dL Phosphorus 2.6 (2.6-4.7) mg/dL Magnesium 2.0 (1.8-2.4) mg/dl Total Bilirubin 0.8 (0.2-1.0) mg/dL AST 455 H (15-37) U/L ALT 842 H (16-63) U/L Alkaline Phosphatase 75 (46-116) U/L Total Protein 6.4 (6.4-8.2) g/dl Albumin 2.8 L (3.4-5.0) g/dl Globulin 3.6 gm/dL Albumin/Globulin Ratio 0.8 L (1-2) Med Orders - Current: Current Medications Ascorbic Acid (Ascorbic Acid 500 Mg Tab) 500 mg PO DAILY [facility] Last Admin: 06/20/20 08:46 Dose: 500 mg Documented by: Cholecalciferol (Cholecalciferol (Vitamin D3) 25 Mcg Tab) 25 mcg PO DAILY [facility] Last Admin: 06/20/20 08:47 Dose: 25 mcg Documented by: Fish Oil (Fish Oil/[place]-3 Fatty Acids 1 Gm Cap) 1 gm PO DAILY [facility] Last Admin: 06/20/20 08:46 Dose: 1 gm Documented by: Sodium Chloride (Normal Saline) 250 mls @ 50 mls/hr IV ASDIRECTED [facility] Ketorolac Tromethamine (Ketorolac 15 Mg/Ml Sdv) 15 mg IVPUSH Q8H PRN PRN Reason: Pain Last Admin: 06/20/20 08:26 Dose: 15 mg Documented by: Lisinopril (Lisinopril 2.5 Mg Tab) 2.5 mg PO DAILY [facility] Last Admin: 06/20/20 08:46 Dose: 2.5 mg Documented by: Magnesium Oxide (Magnesium Oxide 400 Mg Tab) 400 mg PO DAILY [facility] Last Admin: 06/20/20 08:47 Dose: 400 mg Documented by: Multivitamins (Multivitamins,Therapeutic Tab) 1 each PO DAILY [facility] Last Admin: 06/20/20 08:47 Dose: 1 each Documented by: Ondansetron HCl (Ondansetron 4 Mg/2 Ml Sdv) 4 mg IVPUSH Q6H [facility] Last Admin: 06/20/20 14:21 Dose: 4 mg Documented by: Oxycodone HCl (Oxycodone 5 Mg Tab) 5 mg PO Q4H PRN PRN Reason: Pain (moderate 4-6) Last Admin: 06/20/20 15:06 Dose: 5 mg Documented by: Promethazine Plo Transdermal Gel 50 Mg/Ml 0 each TOP Q6H PRN PRN Reason: Nausea Insulin Pump Uses (Fiasp Insulin) 0 each .XX ASDIRECTED [facility] Polyethylene Glycol (Polyethylene Glycol 3350 Powder 17 Gm Packet) 17 gm PO DAILY PRN PRN Reason: Constipation Last Admin: 06/20/20 13:06 Dose: 17 gm Documented by: Simvastatin (Simvastatin 10 Mg Tab) 10 mg PO DAILY [facility] Last Admin: 06/20/20 08:47 Dose: 10 mg Documented by: Tamsulosin HCl (Tamsulosin 0.4 Mg Cap.Er) 0.4 mg PO DAILY [facility] Last Admin: 06/20/20 10:37 Dose: 0.4 mg Documented by: Zinc Sulfate (Zinc Sulfate 220 Mg Cap) 220 mg PO DAILY [facility] Last Admin: 06/20/20 08:47 Dose: 220 mg Documented by: Discontinued Medications Bupivacaine HCl/Epinephrine Bitart (Bupivacaine 0.5%/Epinephrine 1:200,000 50 Ml Mdv) Confirm Administered Dose 50 ml .ROUTE .STK-MED ONE Stop: 06/18/20 07:33 Bupivacaine HCl/Epinephrine Bitart (Bupivacaine 0.5%/Epinephrine 1:200,000 50 Ml Mdv) Confirm Administered Dose 50 ml .ROUTE .STK-MED ONE Stop: 06/18/20 09:13 Last Admin: 06/18/20 08:55 Dose: 60 ml Documented by: Cefazolin Sodium (Cefazolin 1 Gm Vial) Confirm Administered Dose 3 gm .ROUTE .STK-MED ONE Stop: 06/18/20 07:33 Cefazolin Sodium (Cefazolin 1 Gm Vial) Confirm Administered Dose 2 gm .ROUTE .STK-MED ONE Stop: 06/18/20 12:10 Dexamethasone (Dexamethasone 4 Mg/Ml 5 Ml Mdv) Confirm Administered Dose 20 mg .ROUTE .STK-MED ONE Stop: 06/18/20 07:32 Diphenhydramine HCl (Diphenhydramine 50 Mg/Ml Sdv) 25 mg IVPUSH Q6H PRN PRN Reason: pruritis Fentanyl (Fentanyl 100 Mcg/2 Ml Sdv) Confirm Administered Dose 100 mcg .ROUTE .STK-MED ONE Stop: 06/18/20 07:32 Fentanyl (Fentanyl 100 Mcg/2 Ml Sdv) Confirm Administered Dose 100 mcg .ROUTE .STK-MED ONE Stop: 06/18/20 16:04 Fentanyl (Fentanyl 100 Mcg/2 Ml Sdv) Confirm Administered Dose 100 mcg .ROUTE .STK-MED ONE Stop: 06/18/20 16:34 Fentanyl (Fentanyl 100 Mcg/2 Ml Sdv) 50 mcg IVPUSH Q5M PRN PRN Reason: Pain Glycopyrrolate (Glycopyrrolate 0.2 Mg/Ml 2 Ml Syringe) Confirm Administered Dose 0.4 mg .ROUTE .STK-MED ONE Stop: 06/18/20 09:04 Hydromorphone HCl (Hydromorphone 0.5 Mg/0.5 Ml Syringe) Confirm Administered Dose 0.5 mg .ROUTE .STK-MED ONE Stop: 06/18/20 08:50 Hydromorphone HCl (Hydromorphone 0.5 Mg/0.5 Ml Syringe) Confirm Administered Dose 0.5 mg .ROUTE .STK-MED ONE Stop: 06/18/20 09:33 Hydromorphone HCl (Hydromorphone 0.5 Mg/0.5 Ml Syringe) Confirm Administered Dose 0.5 mg .ROUTE .STK-MED ONE Stop: 06/18/20 10:24 Hydromorphone HCl (Hydromorphone 0.5 Mg/0.5 Ml Syringe) Confirm Administered Dose 0.5 mg .ROUTE .STK-MED ONE Stop: 06/18/20 12:01 Hydromorphone HCl (Hydromorphone 0.5 Mg/0.5 Ml Syringe) Confirm Administered Dose 0.5 mg .ROUTE .STK-MED ONE Stop: 06/18/20 13:39 Hydromorphone HCl (Hydromorphone 0.5 Mg/0.5 Ml Syringe) Confirm Administered Dose 0.5 mg .ROUTE .STK-MED ONE Stop: 06/18/20 14:48 Hydromorphone HCl (Hydromorphone 0.5 Mg/0.5 Ml Syringe) 1 mg IVPUSH Q2H PRN PRN Reason: Pain (severe 7-10) Last Admin: 06/19/20 19:41 Dose: 1 mg Documented by: Hydromorphone HCl (Hydromorphone 1 Mg/Ml Syringe) 1 mg IVPUSH Q2H PRN PRN Reason: Pain (severe 7-10) Lactated Ringer's (Ringers, Lactated) 1,000 mls @ 125 mls/hr IV ASDIRECTED [facility] Stop: 06/18/20 23:00 Last Admin: 06/18/20 07:30 Dose: 125 mls/hr Documented by: Lidocaine HCl (Xylocaine-Mpf 1%) Confirm Administered Dose 4 mls @ as directed .ROUTE .ST-MED ONE Stop: 06/18/20 07:29 Lactated Ringer's (Ringers, Lactated) Confirm Administered Dose 1,000 mls @ as directed .ROUTE .ST-MED ONE Stop: 06/18/20 08:49 Lactated Ringer's (Ringers, Lactated) Confirm Administered Dose 2,000 mls @ as directed .ROUTE .ST-MED ONE Stop: 06/18/20 12:01 Sodium Chloride (Normal Saline) Confirm Administered Dose 100 mls @ as directed .ROUTE .STK-MED ONE Stop: 06/18/20 13:17 Lactated Ringer's (Ringers, Lactated) Confirm Administered Dose 1,000 mls @ as directed .ROUTE .ST-MED ONE Stop: 06/18/20 14:34 Lactated Ringer's (Ringers, Lactated) 1,000 mls @ 125 mls/hr IV ASDIRECTED [facility] Last Admin: 06/19/20 03:49 Dose: 125 mls/hr Documented by: Potassium Chloride 10 meq/ (Premix) 100 mls @ 100 mls/hr IV Q1H KRANTHI Stop: 06/20/20 11:44 Last Admin: 06/20/20 16:52 Dose: 100 mls/hr Documented by: Lactated Ringer's (Ringers, Lactated) Confirm Administered Dose 1,000 mls @ as directed .ROUTE .STK-MED ONE Stop: 06/20/20 15:04 Last Admin: 06/20/20 15:11 Dose: Not Given Documented by: Insulin Human Regular (Insulin Regular, Human 100 Units/Ml 3 Ml Vial) 0 unit IV ASDIRECTED PRN PRN Reason: Hyperglycemia Last Admin: 06/18/20 15:09 Dose: 1 unit Documented by: Ketamine HCl (Ketamine 500 Mg/10 Ml Mdv) Confirm Administered Dose 500 mg .ROUTE .STK-MED ONE Stop: 06/18/20 08:55 Ketorolac Tromethamine (Ketorolac 30 Mg/Ml Sdv) Confirm Administered Dose 30 mg .ROUTE .STK-MED ONE Stop: 06/18/20 09:04 Lidocaine/Sodium Bicarbonate (Lidocaine 1%/Sod Bicarbonate In Ns 8.4% 1 Ml Syringe) 0.25 ml IDERM ONETIME PRN PRN Reason: Prior to IV Start Stop: 06/18/20 18:00 Last Admin: 06/18/20 07:30 Dose: 0.25 ml Documented by: Midazolam HCl (Midazolam 1 Mg/Ml 2 Ml Sdv) Confirm Administered Dose 2 mg .ROUTE .STK-MED ONE Stop: 06/18/20 07:31 Miscellaneous Information (Remove Patch) 0 ea TRDERM ONETIME ONE Stop: 06/21/20 13:01 Neostigmine Methylsulfate (Neostigmine Methylsulfate 5 Mg/5 Ml Syringe) Confirm Administered Dose 0 mg .ROUTE .STK-MED ONE Stop: 06/18/20 09:04 Non-Formulary Medication (Ubidecarenone) 100 mg PO DAILY [facility] Ondansetron HCl (Ondansetron 4 Mg/2 Ml Sdv) Confirm Administered Dose 4 mg .ROUTE .STK-MED ONE Stop: 06/18/20 07:32 Ondansetron HCl (Ondansetron 4 Mg/2 Ml Sdv) 4 mg IVPUSH ONETIME PRN PRN Reason: Nausea/Vomiting Ondansetron HCl (Ondansetron 4 Mg/2 Ml Sdv) Confirm Administered Dose 4 mg .ROUTE .STK-MED ONE Stop: 06/18/20 12:42 Pantoprazole Sodium (Pantoprazole 40 Mg Vial) 40 mg IVPUSH DAILY [facility] Last Admin: 06/20/20 08:47 Dose: 40 mg Documented by: Patient Own Medication (Patient's Own Medication 1 Each) 0 each .XX ASDIRECTED KRANTHI Propofol (Propofol 200 Mg/20 Ml Sdv) Confirm Administered Dose 200 mg .ROUTE .STK-MED ONE Stop: 06/18/20 07:29 Propofol (Propofol 200 Mg/20 Ml Sdv) Confirm Administered Dose 200 mg .ROUTE .STK-MED ONE Stop: 06/18/20 08:24 Rocuronium [place] (Rocuronium 50 Mg/5 Ml Vial) Confirm Administered Dose 50 mg .ROUTE .STK-MED ONE Stop: 06/18/20 07:31 Rocuronium [place] (Rocuronium 50 Mg/5 Ml Vial) Confirm Administered Dose 50 mg .ROUTE .STK-MED ONE Stop: 06/18/20 08:49 Rocuronium [place] (Rocuronium 50 Mg/5 Ml Vial) Confirm Administered Dose 50 mg .ROUTE .STK-MED ONE Stop: 06/18/20 10:48 Rocuronium [place] (Rocuronium 50 Mg/5 Ml Vial) Confirm Administered Dose 50 mg .ROUTE .STK-MED ONE Stop: 06/18/20 12:11 Scopolamine (Scopolamine 1.5 Mg Transdermal Patch) 1.5 mg TRDERM ONETIME ONE Stop: 06/18/20 13:01 Last Admin: 06/18/20 20:13 Dose: Not Given Documented by: Sodium Chloride (Sodium Chloride 0.9% 10 Ml Syringe) 10 ml FLUSH ASDIRECTED PRN PRN Reason: Keep Vein Open Stop: 06/18/20 18:00 - Exam General: Reports: Alert, Oriented, Cooperative Lungs: Reports: Clear to Auscultation Cardiovascular: Reports: Regular Rate, Regular Rhythm GI/Abdominal Exam: Soft, No Organomegaly, No Distention, Tender (around the incisions)
== END 2020-06-20 19:30 | disposition home or self-care (01) | DRG 220 ==
LOC: JD.MS 07:10 → INTOOBSV 07:10 → JD.MS 11:00 → OBSVTOIN 06-20 11:00
PROVIDERS: ADMIT Surgery; ATTEND Surgery
PROC: 0DV44ZZ Restriction of Esophagogastric Junction, Percutaneous Endoscopic Approach (ICD-10-PCS; principal; 2020-06-18)
PROC: 0BQT4ZZ Repair Diaphragm, Percutaneous Endoscopic Approach (ICD-10-PCS; 2020-06-18)
PROC: 0DX64Z5 Transfer Stomach to Esophagus, Percutaneous Endoscopic Approach (ICD-10-PCS; 2020-06-18)
PROC: 0DJ08ZZ Inspection of Upper Intestinal Tract, Via Natural or Artificial Opening Endoscopic (ICD-10-PCS; 2020-06-18)
DX: K44.9 Diaphragmatic hernia without obstruction or gangrene (principal); K21.9 Gastro-esophageal reflux disease without esophagitis; Z86.16 Personal history of COVID-19; I47.1 Supraventricular tachycardia; E11.9 Type 2 diabetes mellitus without complications; Z88.6 Allergy status to analgesic agent; E66.9 Obesity, unspecified; Q39.8 Other congenital malformations of esophagus; Z68.33 Body mass index [BMI] 33.0-33.9, adult; R33.9 Retention of urine, unspecified
CPT/HCPCS: 00790; 36415; 51701; 51798; 80053; 82962; 83735; 84100; 85025; 94761; 96374; 96375; 96376; 97110-GP; 97161-GP; A9270-GY; C9113; G0378; J0690; J1100; J1170; J1815-GY; J1885; J2250; J2405; J2704; J2710; J3010; J3480; J3490; J7120

== ENCOUNTER 2020-12-18 19:06 | Emergency (ER) | payer BC ==
[2020-12-18 20:22] VITALS: BP 124/77; PULSE 69
--- NOTE | 2020-12-18 21:03 | EDM.PDOC ---
ED HPI GENERAL MEDICAL PROBLEM - General Chief Complaint: ENT Problem Stated Complaint: HEARING AID BROKE OFF INSIDE EAR Time Seen by Provider: 12/18/20 20:31 Source of Information: Reports: Patient, RN Notes Reviewed History Limitations: Reports: No Limitations - History of Present Illness INITIAL COMMENTS - FREE TEXT/NARRATIVE: Patient is a 60-year-old male who presents to the ER for the evaluation of a piece of his hearing aid stuck within his left ear. Patient states that when he took his hearing aid out today, the very end piece became stuck within the patient's left ear canal. He and his try to retrieve this, by shooting his ear out with some water, and she states that she had also a pair of tweezers at home that she tried 1 or 2 attempts but did not want to hurt her so they ceased attempts and came to the ER to have this retrieved. He is not having any pain in the left ear, there is no sort of trauma noted to the ear. Patient denies any other sick-like symptoms, fever/chills, cough/shortness of breath, nausea/vomiting/diarrhea. - Related Data Allergies Allergy/AdvReac Type Severity Reaction Status Date / Time acetaminophen [From Tylenol] AdvReac Intermediate Other Verified 12/18/20 20:23 Home Meds: Home Meds Ascorbate Calcium [Vitamin C] 500 mg PO DAILY 02/16/20 [History] Cholecalciferol (Vitamin D3) [Vitamin D3] 1,000 unit PO DAILY 02/16/20 [History] Fish Oil/[place]-3 Fatty Acids [Fish Oil 1,000 MG] 4 - 5 gm PO DAILY 02/16/20 [History] Insulin Aspart (Niacinamide) [Fiasp 100 Unit/ml Vial] 1 dose SQ ASDIRECTED 02/16/20 [History] Magnesium Oxide 500 mg PO DAILY 02/16/20 [History] Promethazine [Phenergan] 1 dose TOP ASDIRECTED PRN 02/16/20 [History] Vitamin B Complex 1 cap PO DAILY 02/16/20 [History] lisinopriL [Lisinopril] 2.5 mg PO DAILY 02/16/20 [History] Rosuvastatin [Crestor] 5 mg PO DAILY 06/15/20 [History] Ubidecarenone [Coq-10] 100 mg PO DAILY 06/15/20 [History] Zinc 50 mg PO DAILY 06/15/20 [History] Ondansetron [Zofran ODT] 4 mg PO Q6H PRN #10 tab.dis 06/20/20 [Rx] oxyCODONE 5 mg PO Q6H PRN 5 Days #20 tablet 06/20/20 [Rx] polyethylene glycoL 3350 [MiraLAX] 17 gm PO DAILY 10 Days #20 packet 06/20/20 [Rx] Past Medical History HEENT History: Reports: Other (See Below) Other HEENT History: wears glasses, has hearing aids Cardiovascular History: Reports: Other (See Below) Other Cardiovascular History: svt and R Bundle Branch Block Respiratory History: Reports: Sleep Apnea, Other (See Below) Other Respiratory History: wears cpap Gastrointestinal History: Reports: GERD, Hiatal Hernia Genitourinary History: Reports: None ELECTRIC SOLDERER History: Reports: None Musculoskeletal History: Reports: Other (See Below) Other Musculoskeletal History: R thumb trigger finger, bunion Neurological History: Reports: None Psychiatric History: Reports: None Endocrine/Metabolic History: Reports: Diabetes, Type I, Obesity/BMI 30+ Hematologic History: Reports: None Immunologic History: Reports: None Oncologic (Cancer) History: Reports: None Dermatologic History: Reports: Other (See Below) Other Dermatologic History: erysipelas - Infectious Disease History Infectious Disease History: Reports: Novel Coronavirus - Past Surgical History Head Surgeries/Procedures: Reports: None HEENT Surgical History: Reports: None Cardiovascular Surgical History: Reports: Cardiac Ablation Respiratory Surgical History: Reports: None GI Surgical History: Reports: Colonoscopy, EGD Male Surgical History: Reports: Vasectomy Endocrine Surgical History: Reports: None Neurological Surgical History: Reports: None Musculoskeletal Surgical History: Reports: Other (See Below) Other Musculoskeletal Surgeries/Procedures:: right trigger finger release Oncologic Surgical History: Reports: None Social & Family History - Family History Family Medical History: No Pertinent Family History - Caffeine Use Caffeine Use: Reports: None ED ROS ENT - Review of Systems Review Of Systems: Comprehensive ROS is negative, except as noted in HPI. ED EXAM, ENT - Physical Exam Exam: See Below Exam Limited By: No Limitations General Appearance: Alert, WD/WN, No Apparent Distress Ears: Normal External Exam, Normal Canal, Hearing Grossly Normal, Canal Foreign Body (There was a prieto foreign body noted to the left EAC, this was dislodged with a long tweezers without any trauma incurred to the ear.) Respiratory/Chest: No Respiratory Distress, Lungs Clear, Normal Breath Sounds, No Accessory Muscle Use, Chest Non-Tender Neurological: Alert, Oriented, Normal Cognition, No Motor/Sensory Deficits Psychiatric: Normal Affect, Normal Mood Skin: Warm, Dry, Intact, Normal Color, No Rash ED ENT PROCEDURES - Foreign Body Removal Indication:: piece of hearing aid in left EAC Consent Obtained: Patient Performing Doctor:: Nathalia Ordza V Foreign Body Other Location Comment:: left ear canal Anesthesia Type: None Findings: 1 melvin colored piece of a hearing aid, was fully intact per patient. Complications: No Course - Vital Signs Last Recorded V/S: Last Vital Signs Temp 98.1 F 12/18/20 20:16 Pulse 69 12/18/20 20:16 Resp 20 12/18/20 20:16 BP 124/77 12/18/20 20:16 Pulse Ox 98 12/18/20 20:16 Departure - Departure Time of Disposition: 20:59 Disposition: Home, Self-Care 01 Condition: Good Clinical Impression: Foreign body in ear Qualifiers: Encounter type: initial encounter Laterality: left Qualified Code(s): T16.2XXA - Foreign body in left ear, initial encounter - Discharge Information *PRESCRIPTION DRUG MONITORING PROGRAM REVIEWED*: No *COPY OF PRESCRIPTION DRUG MONITORING REPORT IN PATIENT [place]: No Instructions: Ear Foreign Body, [id number] Referrals: Woody Toney MD [Primary Care Provider] - Forms: ED Department Discharge Additional Instructions: You were evaluated in the ER today because you had a piece of your hearing aid in your left ear. This was removed successfully at today's visit. No trauma was incurred to the ear canal, however there was some tenderness due to removal of the piece. You might want to try to take some Tylenol or ibuprofen if this seems to be bothersome for you when you get home. Do not hesitate to return to the ER at any time if your symptoms should change or worsen. Sepsis Event Note (ED) - Focused Exam Vital Signs: Vital Signs Temp Pulse Resp BP Pulse Ox 12/18/20 20:16 98.1 F 69 20 124/77 98
== END 2020-12-18 21:20 | disposition home or self-care (01) ==
LOC: JD.ED 19:06
DX: T16.2XXA Foreign body in left ear, initial encounter (principal); E10.9 Type 1 diabetes mellitus without complications; E66.9 Obesity, unspecified; Z68.30 Body mass index [BMI] 30.0-30.9, adult; Z88.8 Allergy status to other drugs, medicaments and biological substances; Z86.16 Personal history of COVID-19
CPT/HCPCS: 69200; 99282; 99282-25